=== PATIENT | male | born 1980 | race Asian ===

== ENCOUNTER → 2018-06-03 08:15 | Outpatient (CLI) | payer OTHER, MEDICAID, SELFPAY ==
--- NOTE | 2018-06-03 | DI.MRI.S_ITS ---
PROCEDURE: MR ANKLE RT WO CON INDICATIONS: CHRONIC RIGHT ANKLE PAIN TECHNIQUE: Noncontrast sagittal T1 spin echo and T2 fast spin echo with fat saturation, axial proton density fast spin echo and T2 fast spin echo with fat saturation, coronal T1 spin echo and T2 fast spin echo with fat saturation through the ankle/hindfoot. COMPARISON: [facility], CR, XR ANKLE RT MIN 3V, 02/23/2018, 10:33. FINDINGS: Image quality: Diagnostic. Bones and joints: There is no acute fracture, dislocation, or suspicious osseous lesion involving the osseous structures of the midfoot or hindfoot. There are mild degenerative changes of the talonavicular and medial tarsometatarsal joints. No significant joint effusions are identified. The ankle mortise is well-maintained. There are no osteochondral defects. Medial structures: The deltoid ligament is intact. The spring ligament is also intact. However, there is thickening and increased signal involving the superomedial band of the spring ligament. The plantar components of the spring ligament appear intact. The tibialis posterior tendon contains a small amount of fluid within its tendon sheath. Otherwise, this tendon is within normal limits. The flexor hallucis longus and flexor digitorum longus tendons are intact. The posterior tibial nerve appears to be within normal limits through the region of the tarsal tunnel. Lateral structures: There is irregularity and thickening involving the anterior and posterior distal tibiofibular ligaments, likely representing scarring from previous injury. There is diffusely increased signal and moderate thickening noted involving the anterior and posterior talofibular ligaments. The calcaneofibular ligament also demonstrates increased signal. No full-thickness tears are appreciated. The peroneus brevis and peroneus longus tendons are intact. There is slight increased signal identified involving the peroneus longus tendon along the lateral margin of the calcaneus just below the tip of the lateral malleolus without significant tearing evident. Medial subluxation of the peroneus brevis tendon at the tip of the lateral malleolus is noted. There is mild edema within this region. There is no significant edema within the sinus tarsi. Anterior structures: The tibialis anterior, extensor hallucis longus, and extensor digitorum longus tendons appear intact. The dorsal talonavicular ligament appears intact. Posterior and plantar structures: There is slight increased signal and thickening involving the distal aspect of the Achilles tendon without significant tearing. The plantar fascia appears to be intact and is otherwise unremarkable. IMPRESSION: 1. Extensive sprains of the lateral ankle ligaments without definite full-thickness tears. 2. Mild peroneus longus tendinopathy without significant tearing. Medial subluxation of the peroneus brevis tendon at the tip of the lateral malleolus. 3. Mild degenerative changes of the midfoot. 4. Moderate sprain of the spring ligament. No full-thickness tear. 5. Mild Achilles tendinopathy. Dictated by: Dario Deng M.D. on 06/03/2018 at 9:51 Approved by: Dario Deng M.D. on 06/03/2018 at 10:00
== END ==
PROVIDERS: PCP Family Medicine; Visit Provider Physician Assistant
DX: S93.491A Sprain of other ligament of right ankle, initial encounter (principal); M25.571 Pain in right ankle and joints of right foot; G89.29 Other chronic pain
CPT/HCPCS: 73721

== ENCOUNTER → 2019-05-09 15:42 | Outpatient (ROUT) | payer OTHER, MEDICAID, SELFPAY ==
[2019-05-09 16:12] LABS: Semen Sperm Prescence Post-Vas Absent (ABSENT)
== END ==
PROVIDERS: PCP Family Medicine; Visit Provider Family Medicine
DX: Z98.52 Vasectomy status (principal)
CPT/HCPCS: 89321

== ENCOUNTER → 2020-11-01 09:11 | Outpatient (CLI) | payer OTHER, MEDICAID, SELFPAY ==
[2020-11-01 11:01] LABS: Alanine Aminotransferase 21 IU/L (<50); Albumin 4.3 g/dL (3.5-5.0); Albumin Globulin Ratio 1.5 (1.0-2.8); Alkaline Phosphatase 44 U/L (38-126); Aspartate Aminotransferase 25 IU/L (17-59); BUN Creatinine Ratio 13.3 (6-22); Bilirubin Total 0.7 mg/dL (0.2-1.3); Blood Urea Nitrogen 13 mg/dL (9-20); Calcium 9.4 mg/dL (8.4-10.2); Carbon Dioxide 33 mmol/L (22-32); Chloride 102 mmol/L (98-107); Estimated Glomerular Filt Rate > 60.0 mL/min (>60); Globulin 2.9 g/dL (1.7-4.1); Glucose 105 mg/dL (70-100); HEMOLYSIS < 15 (0-50); Hemoglobin A1C% w Est Avg Glu 5.4 % (4.0-6.0); Potassium 4.1 mmol/L (3.4-5.1); Sodium 138 mmol/L (137-145); Total Protein 7.2 g/dL (6.3-8.2)
== END ==
PROVIDERS: PCP Family Medicine; Referring Provider Family Medicine; Visit Provider Family Medicine
DX: Z13.1 Encounter for screening for diabetes mellitus (principal)
CPT/HCPCS: 36415; 80053; 83036

== ENCOUNTER → 2020-11-26 18:15 | Outpatient (CLI) | payer OTHER, MEDICAID, SELFPAY ==
--- NOTE | 2020-11-26 18:18 | DI.RAD.S_ITS ---
PROCEDURE: XR HAND RT MIN 3V INDICATIONS: Right thumb swelling/tenderness. TECHNIQUE: 3 views of the hand(s) acquired. COMPARISON: None. FINDINGS: Bones: No fractures or dislocations. Carpal bones are normally aligned. No suspicious bony lesions. Soft tissues: No radiopaque foreign body or suspicious soft tissue calcifications. IMPRESSION: No acute finding. Dictated by: Bobby Tripathi M.D. on 11/26/2020 at 18:42 Approved by: Bobby Tripathi M.D. on 11/26/2020 at 18:42
== END ==
PROVIDERS: PCP Family Medicine; Referring Provider Physician Assistant; Visit Provider Physician Assistant
DX: S69.91XA Unspecified injury of right wrist, hand and finger(s), initial encounter (principal); X58.XXXA Exposure to other specified factors, initial encounter
CPT/HCPCS: 73130

== ENCOUNTER → 2020-12-28 08:45 | Outpatient (CLI) | payer OTHER, MEDICAID, SELFPAY ==
[2020-12-28] MEDS: COVID-19 VACC, Ad26(JANSSEN)/PF 0.5 ML IM (08:55)
== END ==
PROVIDERS: PCP Family Medicine; Visit Provider Internal Medicine
DX: Z23 Encounter for immunization (principal)
CPT/HCPCS: 0031A; 91303

== ENCOUNTER → 2022-11-27 09:24 | Outpatient (CLI) | payer OTHER, MEDICAID, SELFPAY | PROVIDERS: Family Provider Family Medicine; PCP Family Medicine; Referring Provider Family Medicine; Visit Provider Family Medicine | DX: G56.22 Lesion of ulnar nerve, left upper limb (principal) | CPT/HCPCS: 95886; 95909 ==

== ENCOUNTER → 2022-12-25 15:05 | Outpatient (CLI) | payer OTHER, MEDICAID, SELFPAY ==
--- NOTE | 2022-12-25 15:07 | DI.US.S_ITS ---
PROCEDURE: US SCROTUM INDICATIONS: Left testicular pain x3-4 yrs; getting worse TECHNIQUE: Real-time scanning was performed of the scrotum and testicles, with image documentation. Color and pulse Doppler interrogation was performed of both testicles. COMPARISON: None. FINDINGS: Right: Testicle is normal in size at 4.9 x 2.3 x 3.3 cm, and homogenous in echotexture. Epididymis is normal in overall size and morphology. No hydrocele or varicoceles. Overlying scrotal skin is normal in thickness. 2 mm echogenic foci within the testis. Left: Testicle is normal in size at 4.8 x 2.0 x 3.1 cm, and homogeneous in echotexture. 2 mm epididymal head cyst. Epididymis is otherwise normal in overall size and morphology. No hydrocele or varicoceles. Overlying scrotal skin is normal in thickness. Doppler: Color and pulse Doppler demonstrate normal and symmetric arterial flow in both testicles. IMPRESSION: 1. Left testicular microlithiasis. This may increased risk for neoplasm. No evidence of neoplasm. 2. Otherwise negative examination. Dictated by: Puma Murray M.D. on 12/25/2022 at 16:46 Approved by: Puma Murray M.D. on 12/25/2022 at 16:47
== END ==
PROVIDERS: Family Provider Family Medicine; PCP Family Medicine; Referring Provider Physician Assistant; Visit Provider Physician Assistant
DX: N50.812 Left testicular pain (principal)
CPT/HCPCS: 76870

== ENCOUNTER 2023-03-11 11:00 | Outpatient (RCR) | payer OTHER, MEDICAID, SELFPAY ==
--- NOTE | 2022-12-17 12:11 | PT.OIE ---
Current Diagnoses Pain in left knee (12/17/22) Past Medical History (Last Reviewed 10/16/22 @ 15:06 by Yuli Calvillo DO) Chicken pox Foot pain Impaired fasting glucose Injury of right thumb Pneumothorax Right clavicle fracture Shoulder pain (~2006) Past Surgical History (Last Reviewed 10/16/22 @ 15:06 by Yuli Calvillo DO) H/O chest tube placement (~1996) History of third molar tooth extraction Status post appendectomy Visit Care Team Role Provider Type Yuli Calvillo DO Attending Provider Physician Family Provider Primary Care Provider Referring Provider Specialty: Family Practice Address: [address] [place] [address] [place], [place], [facility] Email: 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 It was really swollen and stiff a month ago and couldnt squat until it shifted and clicked and then it could move. He feels like he can move his tibia more out on L side. It has always felt loose. 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 He typically works out but hasn't been able to run for the past year. He has history of L MCL tear in 2002 but they didn't do surgery. He feels like his lower leg would push up through his kneecap when doing squats. Pt reports he did go on Naked and afriad about 1.5 year ago and lost a lot of weight. It has always gotten swollen but the past few months it has been a lot worse. Going up and down the stairs he has to be really careful. NO specific recent injury. 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 He did injure his R ankle a few years ago too. He feels like his knee hyperextend and has pain for a few weeks after . He overdid it working out last week and he irritated his LB. REently he has been still doing workout and squats and deadlift etc but with low wt and knee swells up and he just works out through the pain. He would have to give it a week to let the swelling go down. He does have some catching and locking w/bending and straightening then gets a pop. Feels unstable when wlaking ou in the mud especially with feed bags for animals. Treatment Goals Patient/Caregiver Goals be able play soccer, [employer], go on hikes and backpacking trips like long. PT-OP-C Subjective Start: 12/16/22 16:58 Freq: Status: Active Protocol: Document 12/17/22 09:58 [facility] (Rec: 12/17/22 10:56 [facility] [id number]) Patient Questionnaires Lower Extremity Functional Scale LEFS Score 56/80 OP-PT Pain Assessment Location L knee Pain Location Details lat & med & ant Description Aching,Sharp Frequency Frequent Pain Aggravating Factors Exercise,Walking,Stair Climbing Other Pain Aggravating Factors squat, running, lifting Pain Alleviating Factors Elevation PT-OP-D Balance Start: 12/16/22 16:58 Freq: Status: Active Protocol: Document 12/17/22 09:58 [facility] (Rec: 12/17/22 10:56 [facility] [id number]) Balance Tests Single Limb Standing Single Limb- Right 30 sec EC Single Limb- Left 12 sec EC PT-OP-F Manual Assessment Start: 12/16/22 16:58 Freq: Status: Active Protocol: Document 12/17/22 09:58 [facility] (Rec: 12/17/22 10:56 [facility] [id number]) Manual Assessments Soft Tissue Assessment Soft Tissue Mobility Assessment pain along med jt line & MCL, tigthens off ITB and VL border Joint Mobility Assessment Joint Mobility Assessment ER of tibia & IR of femur that worsens w/knee bends L; B compensated supinated feet PT-OP-L Special Tests Start: 12/16/22 16:58 Freq: Status: Active Protocol: Document 12/17/22 09:58 [facility] (Rec: 12/17/22 10:56 [facility] [id number]) Special Tests Knee Special Tests Steve Test Test Results positive for discomfort Rut's Test Test Results neg Varus- 25 Degrees Test Results L slight laxity Valgus- 25 Degrees Test Results L sligth laxity Thessaly Test 5 Degrees Test Results positive Posterior Draw Test Results neg Heber's Test Results L slight laxity PT-OP-M Strength Start: 12/16/22 16:58 Freq: Status: Active Protocol: Document 12/17/22 09:58 [facility] (Rec: 12/17/22 10:56 [facility] [id number]) Hip Strength Hip Manual Muscle Testing Right Flexion (L2) 4 Good Extension (S1) 5 Normal Abduction 5 Normal Adduction 5 Normal External Rotation 5 Normal Internal Rotation 5 Normal Left Flexion (L2) 4- Good- Extension (S1) 4 Good Abduction 4 Good Adduction 4+ Good+ External Rotation 4 Good Internal Rotation 4 Good Comments dec core staiblity w/testing Knee Strength Knee Manual Muscle Testing Right Flexion (S2) 5 Normal Extension (L3) 5 Normal Left Flexion (S2) 5 Normal Extension (L3) 5 Normal Ankle/Foot Strength Ankle and Foot Manual Muscle Testing Right Dorsiflexion (L4) 5 Normal Plantarflexion (S1) 5 Normal Left Dorsiflexion (L4) 5 Normal Plantarflexion (S1) 5 Normal Comments 20 heel raises B PT-OP-Q Treatments Start: 12/16/22 16:58 Freq: Status: Active Protocol: Document 12/17/22 09:58 [facility] (Rec: 12/17/22 10:56 [facility] [id number]) Self-Care/Home Management Treatment Education Other Education 8 min-edu re: how the rotation of his knees could create meniscus injury. discussed anatomy of meniscus and knees and that PT has been proven to be very effective. discussed ligamentous laxity but no full give. Discussed dec core connection to LLE. PT-OP-T Assessment and Plan Start: 12/16/22 16:58 Freq: Status: Active Protocol: Document 12/17/22 09:58 [facility] (Rec: 12/17/22 10:56 [facility] [id number]) Physical Therapy Assessment Rehab Potential Rehabilitation Potential Good Evaluation Complexity Number of Personal Factors/Comorbidities 3 or More Number of Body Systems Impaired 4 or More Clinical Presentation at Evaluation Evolving Impairments Impairments Activity Tolerance,Balance, Edema,Functional Activities, Functional Mobility,Gait,Pain, Posture,ROM,Soft Tissue Mobility,Strength Goals activities Short Term Goal (STG) Pt will be able to go for walks on flat terrain w/o feeling need to be careful or feeling of instability. STG Duration 01/31/23 Fdc Goal (LTG) Pt will be able to return to running and cutting activities w/o feeling of instability. LTG Duration 03/10/23 balance Fdc Goal (LTG) Pt will be able to do SLS on LLE EC for 30 sec to show improved balancea nd stability . 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 STG Duration 01/31/23 Fdc Goal (LTG) Pt will improve score to LEFS to at least 76/80 to show improved functional ability. LTG Duration 03/11/23 Assessment Summary Assessment Pt presents w/L knee pain that has limited him for the past year, but has gotten much worse that past few months. He has significant ER of tibia, pronation of foot and IR of femur likely causing rotatary forces at knee that are increasing pain. He typically is very active and is unable to play with his kids as he typically would like, unable to lift and workout w/o signfiicantly increasing his pain and even walking on even terrain is difficult for him and he feels like he has to focus on his mechanics constantly to avoid hurting his knee. He has had instabiltiy since MCL tear 20 years ago which had no surgical care. He would benefit from skilled PT to improve movement patterns of LLE, balance, gait, strength and ROM of L knee withou inc pain during typical activities . Physical Therapy Plan Frequency and Duration Frequency of Treatment 1-2x/wk Duration of treatment (weeks) 12 Plan of Care Start Date 12/17/22 Plan of Care End Date 03/11/23 Therapeutic Interventions Therapeutic Interventions Aquatic Therapy,Balance Training,Coordination Training ,Gait Training,Home Exercise Program,Joint Mobilizations, Soft Tissue Mobilization, Taping,Therapeutic Activities, Therapeutic Exercises Modalities Cold Pack/Ice Massage,Electric Stimulation,Hot Packs, Infrared Therapy,Iontophoresis ,Ultrasound Other Therapeutic Interventions ionto dexomethasone Next Visit Focus/Plan Next Note Type Treatment Note Next Visit Plan review DL iso press; look at squat form and lunge form, check demetrius and SLR, manual to VL/ITB, hip mobs & ankle mobs along w/tib fem mobs
--- NOTE | 2022-12-17 12:11 | PT.OPPOC ---
Physical, Occupational & Speech Therapy At [facility] Current Diagnoses Pain in left knee (12/17/22) Visit Care Team Role Provider Type Yuli Calvillo DO Attending Provider Physician Family Provider Primary Care Provider Referring Provider Specialty: Family Practice Address: [address] [place] [address], [id number] Email: [email or web address] Plan Of Care PT-OP-T Assessment and Plan Start: 12/16/22 16:58 Freq: Status: Active Protocol: Document 12/17/22 09:58 [facility] (Rec: 12/17/22 10:56 [facility] [id number]) Physical Therapy Assessment Rehab Potential Rehabilitation Potential Good Evaluation Complexity Number of Personal Factors/Comorbidities 3 or More Number of Body Systems Impaired 4 or More Clinical Presentation at Evaluation Evolving Impairments Impairments Activity Tolerance,Balance, Edema,Functional Activities, Functional Mobility,Gait,Pain, Posture,ROM,Soft Tissue Mobility,Strength Goals activities Short Term Goal (STG) Pt will be able to go for walks on flat terrain w/o feeling need to be careful or feeling of instability. STG Duration 01/31/23 Alf Goal (LTG) Pt will be able to return to running and cutting activities w/o feeling of instability. LTG Duration 03/10/23 balance [employer] Reader Goal (LTG) Pt will be able to do SLS on LLE EC for 30 sec to show improved balancea nd stability . LTG Duration 03/10/23 strength Short Term Goal (STG) Pt will be indep w/HEP STG Duration 01/31/23 [employer] Reader Goal (LTG) Pt will score at 5/5 on all MMT w/appropriate core response in testing and at least 4/5 on LPM to show improved stability in order to improve pt ability to do typical active lifestyle activities(sports, hikes, play w/kids) LTG Duration 03/10/23 LEFS Impairment 56/80 Short Term Goal (STG) Pt will improve score to LEFS to at least 64/80 to show improved functional ability. STG Duration 01/31/23 [employer] Reader Goal (LTG) Pt will improve score to LEFS to at least 76/80 to show improved functional ability. LTG Duration 03/11/23 Assessment Summary Assessment Pt presents w/L knee pain that has limited him for the past year, but has gotten much worse that past few months. He has significant ER of tibia, pronation of foot and IR of femur likely causing rotatary forces at knee that are increasing pain. He typically is very active and is unable to play with his kids as he typically would like, unable to lift and workout w/o signfiicantly increasing his pain and even walking on even terrain is difficult for him and he feels like he has to focus on his mechanics constantly to avoid hurting his knee. He has had instabiltiy since MCL tear 20 years ago which had no surgical care. He would benefit from skilled PT to improve movement patterns of LLE, balance, gait, strength and ROM of L knee withou inc pain during typical activities . Physical Therapy Plan Frequency and Duration Frequency of Treatment 1-2x/wk Duration of treatment (weeks) 12 Plan of Care Start Date 12/17/22 Plan of Care End Date 03/11/23 Therapeutic Interventions Therapeutic Interventions Aquatic Therapy,Balance Training,Coordination Training ,Gait Training,Home Exercise Program,Joint Mobilizations, Soft Tissue Mobilization, Taping,Therapeutic Activities, Therapeutic Exercises Modalities Cold Pack/Ice Massage,Electric Stimulation,Hot Packs, Infrared Therapy,Iontophoresis ,Ultrasound Other Therapeutic Interventions ionto dexomethasone Next Visit Focus/Plan Next Note Type Treatment Note Next Visit Plan review DL iso press; look at squat form and lunge form, check demetrius and SLR, manual to VL/ITB, hip mobs & ankle mobs along w/tib fem mobs Plan of Care Dates Plan of Care Start Date 12/17/22 Plan of Care End Date 03/11/23 Electronically Signed by: Trisha Luther, PT 12/17/22 121 If you are in agreement with this Plan of Care, please return a signed and dated copy. I have reviewed this Plan of Care and certify that the skilled therapy services above are required to meet the patient?s needs. Physician Signature Date Printed Name and Credentials Clinical Instructor Signature Printed Name and Credentials
--- NOTE | 2022-12-24 10:51 | PT.OTN ---
Current Diagnoses Pain in left knee (12/24/22) Physical Therapy Treatment Note PT-OP-A Visit Information Start: 12/16/22 16:58 Freq: Status: Active Protocol: Document 12/24/22 09:27 [facility] (Rec: 12/24/22 10:51 [facility] [id number]) Out-Patient Physical Therapy Visit Information Visit Information Visit Type Treatment Note Visit Start Time 09:47 Visit Stop Time 10:30 Total Visit Minutes 43 Visit Number 2/12 Number of MUNITIONS FACTORY WORKER Visits 0 PT-OP-B Current Condition Start: 12/16/22 16:58 Freq: Status: Active Protocol: Document 12/17/22 09:58 [facility] (Rec: 12/17/22 10:56 [facility] [id number]) Current Condition History of Current Condition Onset Date about 1 year and worse past few months Current Complaints L knee pain History of Current Condition Pt reports his L knee never felt stable. It was really swollen and stiff a month ago and couldnt squat until it shifted and clicked and then it could move. He feels like he can move his tibia more out on L side. It has always felt loose. 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 He typically works out but hasn't been able to run for the past year. He has history of L MCL tear in 2002 but they didn't do surgery. He feels like his lower leg would push up through his kneecap when doing squats. Pt reports he did go on Naked and afriad about 1.5 year ago and lost a lot of weight. It has always gotten swollen but the past few months it has been a lot worse. Going up and down the stairs he has to be really careful. NO specific recent injury. 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 He did injure his R ankle a few years ago too. He feels like his knee hyperextend and has pain for a few weeks after . He overdid it working out last week and he irritated his LB. REently he has been still doing workout and squats and deadlift etc but with low wt and knee swells up and he just works out through the pain. He would have to give it a week to let the swelling go down. He does have some catching and locking w/bending and straightening then gets a pop. Feels unstable when wlaking ou in the mud especially with feed bags for animals. Treatment Goals Patient/Caregiver Goals be able play soccer, ultimate frisbee, go on hikes and backpacking trips like long. PT-OP-C Subjective Start: 12/16/22 16:58 Freq: Status: Active Protocol: Document 12/24/22 09:27 [facility] (Rec: 12/24/22 10:51 [facility] [id number]) OP-PT Subjective Patient Comments Patient Comments Pt reprots knee feels okay but was gone at a wedding but did some air squats . notes he feels like his core is uneven and has noticed this more sicne eval. Notes his R ankle restricts his squat ability but it was never treated PT-OP-D Balance Start: 12/16/22 16:58 Freq: Status: Active Protocol: Document 12/17/22 09:58 [facility] (Rec: 12/17/22 10:56 [facility] [id number]) Balance Tests Single Limb Standing Single Limb- Right 30 sec EC Single Limb- Left 12 sec EC PT-OP-F Manual Assessment Start: 12/16/22 16:58 Freq: Status: Active Protocol: Document 12/17/22 09:58 [facility] (Rec: 12/17/22 10:56 [facility] [id number]) Manual Assessments Soft Tissue Assessment Soft Tissue Mobility Assessment pain along med jt line & MCL, tigthens off ITB and VL border Joint Mobility Assessment Joint Mobility Assessment ER of tibia & IR of femur that worsens w/knee bends L; B compensated supinated feet PT-OP-L Special Tests Start: 12/16/22 16:58 Freq: Status: Active Protocol: Document 12/17/22 09:58 [facility] (Rec: 12/17/22 10:56 [facility] [id number]) Special Tests Knee Special Tests Steve Test Test Results positive for discomfort Rut's Test Test Results neg Varus- 25 Degrees Test Results L slight laxity Valgus- 25 Degrees Test Results L sligth laxity Thessaly Test 5 Degrees Test Results positive Posterior Draw Test Results neg Heber's Test Results L slight laxity PT-OP-M Strength Start: 12/16/22 16:58 Freq: Status: Active Protocol: Document 12/17/22 09:58 [facility] (Rec: 12/17/22 10:56 [facility] [id number]) Hip Strength Hip Manual Muscle Testing Right Flexion (L2) 4 Good Extension (S1) 5 Normal Abduction 5 Normal Adduction 5 Normal External Rotation 5 Normal Internal Rotation 5 Normal Left Flexion (L2) 4- Good- Extension (S1) 4 Good Abduction 4 Good Adduction 4+ Good+ External Rotation 4 Good Internal Rotation 4 Good Comments dec core staiblity w/testing Knee Strength Knee Manual Muscle Testing Right Flexion (S2) 5 Normal Extension (L3) 5 Normal Left Flexion (S2) 5 Normal Extension (L3) 5 Normal Ankle/Foot Strength Ankle and Foot Manual Muscle Testing Right Dorsiflexion (L4) 5 Normal Plantarflexion (S1) 5 Normal Left Dorsiflexion (L4) 5 Normal Plantarflexion (S1) 5 Normal Comments 20 heel raises B PT-OP-Q Treatments Start: 12/16/22 16:58 Freq: Status: Active Protocol: Document 12/24/22 09:27 [facility] (Rec: 12/24/22 10:51 [facility] [id number]) Therapeutic Exercises Prone Exercises hip rotation Prone Exercise Name IR and ER Side left Reps/Minutes 6 Comments cues to keep pelvis even Standing Exercises ankle mob Standing Exercise Name on step Side bilateral Equipment Used L4 band Reps/Minutes 3 lunge Standing Exercise Name split squat Side bilateral Reps/Minutes 10 Comments cues for glute med engagment squat Side bilateral Reps/Minutes 8 Comments cues comfortable range Manual Therapy Treatment Joint Mobilizations hip Direction B on axis IR FM; L on axis ER Fm Comments manual faciliation at end ranges innominate Joint caudal R, IR B, ER L FM sacrum Joint caudal R, AP L FM PT-OP-T Assessment and Plan Start: 12/16/22 16:58 Freq: Status: Active Protocol: Document 12/24/22 09:27 [facility] (Rec: 12/24/22 10:51 [facility] [id number]) Physical Therapy Assessment Goals activities Short Term Goal (STG) Pt will be able to go for walks on flat terrain w/o feeling need to be careful or feeling of instability. STG Duration 01/31/23 Fiber Optic Technician Goal (LTG) Pt will be able to return to running and cutting activities w/o feeling of instability. LTG Duration 03/10/23 balance Fci Goal (LTG) Pt will be able to do SLS on LLE EC for 30 sec to show improved balancea nd stability . LTG Duration 03/10/23 strength Short Term Goal (STG) Pt will be indep w/HEP STG Duration 01/31/23 Fiber Optic Technician Goal (LTG) Pt will score at 5/5 on all MMT w/appropriate core response in testing and at least 4/5 on LPM to show improved stability in order to improve pt ability to do typical active lifestyle activities(sports, hikes, play w/kids) LTG Duration 03/10/23 LEFS Impairment 56/80 Short Term Goal (STG) Pt will improve score to LEFS to at least 64/80 to show improved functional ability. STG Duration 01/31/23 [facility]ci Goal (LTG) Pt will improve score to LEFS to at least 76/80 to show improved functional ability. LTG Duration 03/11/23 Assessment Summary Assessment Pt has significant restrictions and hp and ankle B which create inappropriate femoral and tibial rotaitons during standing exericses. He did well with squats but encouraged to stay in comfortable range, and w/split squat encouraged to keep hip under him and get hip abd. Physical Therapy Plan Frequency and Duration Frequency of Treatment 1-2x/wk Duration of treatment (weeks) 12 Plan of Care Start Date 12/17/22 Plan of Care End Date 03/11/23 Next Visit Focus/Plan Next Note Type Treatment Note Next Visit Plan check demetrius and ORTIZ, manual to VL/ITB, hip mobs & ankle mobs along w/tib fem mobs; work innominate/hip flex, abd, add and ext
--- NOTE | 2023-01-02 10:30 | PT.OTN ---
Current Diagnoses Pain in left knee (01/02/23) Physical Therapy Treatment Note PT-OP-A Visit Information Start: 12/16/22 16:58 Freq: Status: Active Protocol: Document 01/02/23 09:47 [facility] (Rec: 01/02/23 10:33 [facility] [id number]) Out-Patient Physical Therapy Visit Information Visit Information Visit Type Treatment Note Visit Start Time 09:47 Visit Stop Time 10:30 Total Visit Minutes 42 Visit Number 3/ Number of METAL SASH SETTER Visits 1 PT-OP-B Current Condition Start: 12/16/22 16:58 Freq: Status: Active Protocol: Document 12/17/22 09:58 [facility] (Rec: 12/17/22 10:56 [facility] [id number]) Current Condition History of Current Condition Onset Date about 1 year and worse past few months Current Complaints L knee pain History of Current Condition Pt reports his L knee never felt stable. It was really swollen and stiff a month ago and couldnt squat until it shifted and clicked and then it could move. He feels like he can move his tibia more out on L side. It has always felt loose. 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 He typically works out but hasn't been able to run for the past year. He has history of L MCL tear in 2002 but they didn't do surgery. He feels like his lower leg would push up through his kneecap when doing squats. Pt reports he did go on Naked and afriad about 1.5 year ago and lost a lot of weight. It has always gotten swollen but the past few months it has been a lot worse. Going up and down the stairs he has to be really careful. NO specific recent injury. 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 He did injure his R ankle a few years ago too. He feels like his knee hyperextend and has pain for a few weeks after . He overdid it working out last week and he irritated his LB. REently he has been still doing workout and squats and deadlift etc but with low wt and knee swells up and he just works out through the pain. He would have to give it a week to let the swelling go down. He does have some catching and locking w/bending and straightening then gets a pop. Feels unstable when wlaking ou in the mud especially with feed bags for animals. Treatment Goals Patient/Caregiver Goals be able play soccer, ultimate frisbee, go on hikes and backpacking trips like long. PT-OP-C Subjective Start: 12/16/22 16:58 Freq: Status: Active Protocol: Document 01/02/23 09:47 [facility] (Rec: 01/02/23 10:33 [facility] [id number]) OP-PT Subjective Patient Comments Patient Comments Pt reports good stretching and exercises given last tx and compliant at home. PT-OP-D Balance Start: 12/16/22 16:58 Freq: Status: Active Protocol: Document 12/17/22 09:58 [facility] (Rec: 12/17/22 10:56 [facility] [id number]) Balance Tests Single Limb Standing Single Limb- Right 30 sec EC Single Limb- Left 12 sec EC PT-OP-F Manual Assessment Start: 12/16/22 16:58 Freq: Status: Active Protocol: Document 12/17/22 09:58 [facility] (Rec: 12/17/22 10:56 [facility] [id number]) Manual Assessments Soft Tissue Assessment Soft Tissue Mobility Assessment pain along med jt line & MCL, tigthens off ITB and VL border Joint Mobility Assessment Joint Mobility Assessment ER of tibia & IR of femur that worsens w/knee bends L; B compensated supinated feet PT-OP-L Special Tests Start: 12/16/22 16:58 Freq: Status: Active Protocol: Document 12/17/22 09:58 [facility] (Rec: 12/17/22 10:56 [facility] [id number]) Special Tests Knee Special Tests Steve Test Test Results positive for discomfort Rut's Test Test Results neg Varus- 25 Degrees Test Results L slight laxity Valgus- 25 Degrees Test Results L sligth laxity Thessaly Test 5 Degrees Test Results positive Posterior Draw Test Results neg Heber's Test Results L slight laxity PT-OP-M Strength Start: 12/16/22 16:58 Freq: Status: Active Protocol: Document 12/17/22 09:58 [facility] (Rec: 12/17/22 10:56 [facility] [id number]) Hip Strength Hip Manual Muscle Testing Right Flexion (L2) 4 Good Extension (S1) 5 Normal Abduction 5 Normal Adduction 5 Normal External Rotation 5 Normal Internal Rotation 5 Normal Left Flexion (L2) 4- Good- Extension (S1) 4 Good Abduction 4 Good Adduction 4+ Good+ External Rotation 4 Good Internal Rotation 4 Good Comments dec core staiblity w/testing Knee Strength Knee Manual Muscle Testing Right Flexion (S2) 5 Normal Extension (L3) 5 Normal Left Flexion (S2) 5 Normal Extension (L3) 5 Normal Ankle/Foot Strength Ankle and Foot Manual Muscle Testing Right Dorsiflexion (L4) 5 Normal Plantarflexion (S1) 5 Normal Left Dorsiflexion (L4) 5 Normal Plantarflexion (S1) 5 Normal Comments 20 heel raises B PT-OP-Q Treatments Start: 12/16/22 16:58 Freq: Status: Active Protocol: Document 01/02/23 09:47 [facility] (Rec: 01/02/23 10:33 [facility] [id number]) Therapeutic Exercises Supine Exercises demetrius stretch Supine Exercise Name added to HEP Side bilateral Resistance R tighter than L (feel tension L during R, ok if PPT) Equipment Used w/ strap Reps/Minutes 60 Comments cued PPT/neutral spineTA no LB arch Prone Exercises hip rotation Prone Exercise Name IR and ER Side left Reps/Minutes 6 Comments cues to keep pelvis even, limited IR Standing Exercises runner stretch Standing Exercise Name reviewed self- discussed pigeon up/down trial next tx Side left Reps/Minutes 30 Comments reviewed self runners stretch LE up on table, SLS on opp LE Other Exercises 1/2 kneel stretch Other Exercise Name added to HEP and w/ foot elevated Side bilateral Equipment Used pillow under kne Reps/Minutes 60 Comments cued Manual Therapy Treatment Soft Tissue Mobilization Leg Body Location B VL, ITB Mobilization Type Cross-Friction,Strumming Intensity/Depth Moderate Body Position Hooklying Comments manual w/breath abdominal Body Location B Mobilization Type Sustained Pressure,Other Intensity/Depth Moderate Body Position Hooklying Comments manual w/breath psoas, iliacus Body Location B Mobilization Type Sustained Pressure,Other Intensity/Depth Moderate Body Position Hooklying Comments manual w/breath PT-OP-T Assessment and Plan Start: 12/16/22 16:58 Freq: Status: Active Protocol: Document 01/02/23 09:47 [facility] (Rec: 01/02/23 10:33 [facility] [id number]) Physical Therapy Assessment Goals activities Short Term Goal (STG) Pt will be able to go for walks on flat terrain w/o feeling need to be careful or feeling of instability. STG Duration 01/31/23 Pharmacy Technician Trainee Goal (LTG) Pt will be able to return to running and cutting activities w/o feeling of instability. LTG Duration 03/10/23 balance Pharmacy Technician Trainee Goal (LTG) Pt will be able to do SLS on LLE EC for 30 sec to show improved balancea nd stability . LTG Duration 03/10/23 strength Short Term Goal (STG) Pt will be indep w/HEP STG Duration 01/31/23 Pharmacy Technician Trainee Goal (LTG) Pt will score at 5/5 on all MMT w/appropriate core response in testing and at least 4/5 on LPM to show improved stability in order to improve pt ability to do typical active lifestyle activities(sports, hikes, play w/kids) LTG Duration 03/10/23 LEFS Impairment 56/80 Short Term Goal (STG) Pt will improve score to LEFS to at least 64/80 to show improved functional ability. STG Duration 01/31/23 Jail Goal (LTG) Pt will improve score to LEFS to at least 76/80 to show improved functional ability. LTG Duration 03/11/23 Assessment Summary Assessment Pt good feedback response to manual and added hip flexor stretching, stated able to get more hip extension, IR post session. Physical Therapy Plan Frequency and Duration Frequency of Treatment 1-2x/wk Duration of treatment (weeks) 12 Plan of Care Start Date 12/17/22 Plan of Care End Date 03/11/23 Therapeutic Interventions Therapeutic Interventions Aquatic Therapy,Balance Training,Coordination Training ,Gait Training,Home Exercise Program,Joint Mobilizations, Soft Tissue Mobilization, Taping,Therapeutic Activities, Therapeutic Exercises Modalities Cold Pack/Ice Massage,Electric Stimulation,Hot Packs, Infrared Therapy,Iontophoresis ,Ultrasound Other Therapeutic Interventions ionto dexomethasone Next Visit Focus/Plan Next Note Type Treatment Note Next Visit Plan REcheck demetrius and ORTIZ POC: manual to VL/ITB, hip mobs & ankle mobs along w/tib fem mobs; work innominate/hip flex, abd, add and ext
--- NOTE | 2023-01-07 17:45 | PT.OTN ---
Current Diagnoses Pain in left knee (01/07/23) Physical Therapy Treatment Note PT-OP-A Visit Information Start: 12/16/22 16:58 Freq: Status: Active Protocol: Document 01/07/23 09:53 [facility] (Rec: 01/07/23 17:45 [facility] [id number]) Out-Patient Physical Therapy Visit Information Visit Information Visit Type Treatment Note Visit Start Time 09:51 Visit Stop Time 10:32 Total Visit Minutes 41 Visit Number 4/12 Number of CLOSING SPECIALIST Visits 0 PT-OP-B Current Condition Start: 12/16/22 16:58 Freq: Status: Active Protocol: Document 12/17/22 09:58 [facility] (Rec: 12/17/22 10:56 [facility] [id number]) Current Condition History of Current Condition Onset Date about 1 year and worse past few months Current Complaints L knee pain History of Current Condition Pt reports his L knee never felt stable. It was really swollen and stiff a month ago and couldnt squat until it shifted and clicked and then it could move. He feels like he can move his tibia more out on L side. It has always felt loose. 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 He typically works out but hasn't been able to run for the past year. He has history of L MCL tear in 2002 but they didn't do surgery. He feels like his lower leg would push up through his kneecap when doing squats. Pt reports he did go on Naked and afriad about 1.5 year ago and lost a lot of weight. It has always gotten swollen but the past few months it has been a lot worse. Going up and down the stairs he has to be really careful. NO specific recent injury. 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 He did injure his R ankle a few years ago too. He feels like his knee hyperextend and has pain for a few weeks after . He overdid it working out last week and he irritated his LB. REently he has been still doing workout and squats and deadlift etc but with low wt and knee swells up and he just works out through the pain. He would have to give it a week to let the swelling go down. He does have some catching and locking w/bending and straightening then gets a pop. Feels unstable when wlaking ou in the mud especially with feed bags for animals. Treatment Goals Patient/Caregiver Goals be able play soccer, ultimate frisbee, go on hikes and backpacking trips like long. PT-OP-C Subjective Start: 12/16/22 16:58 Freq: Status: Active Protocol: Document 01/07/23 09:53 [facility] (Rec: 01/07/23 17:45 [facility] [id number]) OP-PT Subjective Patient Comments Patient Comments Pt reprots knee is sore from working out PT-OP-D Balance Start: 12/16/22 16:58 Freq: Status: Active Protocol: Document 12/17/22 09:58 [facility] (Rec: 12/17/22 10:56 [id number] Balance Tests Single Limb Standing Single Limb- Right 30 sec EC Single Limb- Left 12 sec EC PT-OP-F Manual Assessment Start: 12/16/22 16:58 Freq: Status: Active Protocol: Document 12/17/22 09:58 [facility] (Rec: 12/17/22 10:56 [facility] [id number]) Manual Assessments Soft Tissue Assessment Soft Tissue Mobility Assessment pain along med jt line & MCL, tigthens off ITB and VL border Joint Mobility Assessment Joint Mobility Assessment ER of tibia & IR of femur that worsens w/knee bends L; B compensated supinated feet PT-OP-L Special Tests Start: 12/16/22 16:58 Freq: Status: Active Protocol: Document 12/17/22 09:58 [facility] (Rec: 12/17/22 10:56 [facility] [id number]) Special Tests Knee Special Tests Steve Test Test Results positive for discomfort Rut's Test Test Results neg Varus- 25 Degrees Test Results L slight laxity Valgus- 25 Degrees Test Results L sligth laxity Thessaly Test 5 Degrees Test Results positive Posterior Draw Test Results neg Heber's Test Results L slight laxity PT-OP-M Strength Start: 12/16/22 16:58 Freq: Status: Active Protocol: Document 12/17/22 09:58 [facility] (Rec: 12/17/22 10:56 [facility] [id number]) Hip Strength Hip Manual Muscle Testing Right Flexion (L2) 4 Good Extension (S1) 5 Normal Abduction 5 Normal Adduction 5 Normal External Rotation 5 Normal Internal Rotation 5 Normal Left Flexion (L2) 4- Good- Extension (S1) 4 Good Abduction 4 Good Adduction 4+ Good+ External Rotation 4 Good Internal Rotation 4 Good Comments dec core staiblity w/testing Knee Strength Knee Manual Muscle Testing Right Flexion (S2) 5 Normal Extension (L3) 5 Normal Left Flexion (S2) 5 Normal Extension (L3) 5 Normal Ankle/Foot Strength Ankle and Foot Manual Muscle Testing Right Dorsiflexion (L4) 5 Normal Plantarflexion (S1) 5 Normal Left Dorsiflexion (L4) 5 Normal Plantarflexion (S1) 5 Normal Comments 20 heel raises B PT-OP-Q Treatments Start: 12/16/22 16:58 Freq: Status: Active Protocol: Document 01/07/23 09:53 [facility] (Rec: 01/07/23 17:45 [facility] [id number]) Manual Therapy Treatment Soft Tissue Mobilization quad Body Location RF w/demetrius test position active knee flex/ext Mobilization Type Sustained Pressure Intensity/Depth Moderate Leg Body Location L VL, ITB & HS circumfrential Mobilization Type Cross-Friction,Strumming Intensity/Depth Moderate Body Position Hooklying Comments w/active HS stretch psoas, iliacus Body Location L working on movement into inguinal ligament Mobilization Type Sustained Pressure,Other Intensity/Depth Moderate Body Position Hooklying Comments w/heel slides Joint Mobilizations tibfib Comments 1.L distraction & AP FM fib proximal 2. distal tib PA FM tibfem Comments AP tibia and AP femur FM L PT-OP-T Assessment and Plan Start: 12/16/22 16:58 Freq: Status: Active Protocol: Document 01/07/23 09:53 [facility] (Rec: 01/07/23 17:45 [facility] [id number]) Physical Therapy Assessment Goals activities Short Term Goal (STG) Pt will be able to go for walks on flat terrain w/o feeling need to be careful or feeling of instability. STG Duration 01/31/23 Tax Services Professional Goal (LTG) Pt will be able to return to running and cutting activities w/o feeling of instability. LTG Duration 03/10/23 balance Usp Goal (LTG) Pt will be able to do SLS on LLE EC for 30 sec to show improved balancea nd stability . LTG Duration 03/10/23 strength Short Term Goal (STG) Pt will be indep w/HEP STG Duration 01/31/23 Usp Goal (LTG) Pt will score at 5/5 on all MMT w/appropriate core response in testing and at least 4/5 on LPM to show improved stability in order to improve pt ability to do typical active lifestyle activities(sports, hikes, play w/kids) LTG Duration 03/10/23 LEFS Impairment 56/80 Short Term Goal (STG) Pt will improve score to LEFS to at least 64/80 to show improved functional ability. STG Duration 01/31/23 Tax Services Professional Goal (LTG) Pt will improve score to LEFS to at least 76/80 to show improved functional ability. LTG Duration 03/11/23 Assessment Summary Assessment Pt had improved knee tracking after manual treatment.He does still have ER of tibia in standing along w/ER of foot which likely contributes to knee positioning being turned out. Physical Therapy Plan Frequency and Duration Frequency of Treatment 1-2x/wk Duration of treatment (weeks) 12 Plan of Care Start Date 12/17/22 Plan of Care End Date 03/11/23 Next Visit Focus/Plan Next Note Type Treatment Note Next Visit Plan work on ankle mobs, and circumfential mobility, med/ lat tibfem glides;sidesteps, do lat and fwd lunge (make sure no knee pain)
--- NOTE | 2023-01-14 12:24 | PT.OTN ---
Current Diagnoses Pain in left knee (01/14/23) Physical Therapy Treatment Note PT-OP-A Visit Information Start: 12/16/22 16:58 Freq: Status: Active Protocol: Document 01/14/23 12:15 [facility] (Rec: 01/14/23 12:23 [facility] [id number]) Out-Patient Physical Therapy Visit Information Visit Information Visit Start Time 09:52 Visit Stop Time 10:31 Total Visit Minutes 39 Visit Number 5/12 Number of STEAM ROOM ATTENDANT Visits 0 PT-OP-B Current Condition Start: 12/16/22 16:58 Freq: Status: Active Protocol: Document 12/17/22 09:58 [facility] (Rec: 12/17/22 10:56 [facility] [id number]) Current Condition History of Current Condition Onset Date about 1 year and worse past few months Current Complaints L knee pain History of Current Condition Pt reports his L knee never felt stable. It was really swollen and stiff a month ago and couldnt squat until it shifted and clicked and then it could move. He feels like he can move his tibia more out on L side. It has always felt loose. 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 He typically works out but hasn't been able to run for the past year. He has history of L MCL tear in 2002 but they didn't do surgery. He feels like his lower leg would push up through his kneecap when doing squats. Pt reports he did go on Naked and afriad about 1.5 year ago and lost a lot of weight. It has always gotten swollen but the past few months it has been a lot worse. Going up and down the stairs he has to be really careful. NO specific recent injury. 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 He did injure his R ankle a few years ago too. He feels like his knee hyperextend and has pain for a few weeks after . He overdid it working out last week and he irritated his LB. REently he has been still doing workout and squats and deadlift etc but with low wt and knee swells up and he just works out through the pain. He would have to give it a week to let the swelling go down. He does have some catching and locking w/bending and straightening then gets a pop. Feels unstable when wlaking ou in the mud especially with feed bags for animals. Treatment Goals Patient/Caregiver Goals be able play soccer, ultimate frisbee, go on hikes and backpacking trips like long. PT-OP-C Subjective Start: 12/16/22 16:58 Freq: Status: Active Protocol: Document 01/14/23 12:15 [facility] (Rec: 01/14/23 12:23 [facility] [id number]) OP-PT Subjective Patient Comments Patient Comments pt reports knee has been popping but not painfully since last session. Notes knee has been more sore w/working out since PT PT-OP-D Balance Start: 12/16/22 16:58 Freq: Status: Active Protocol: Document 12/17/22 09:58 [facility] (Rec: 12/17/22 10:56 [id number] Balance Tests Single Limb Standing Single Limb- Right 30 sec EC Single Limb- Left 12 sec EC PT-OP-F Manual Assessment Start: 12/16/22 16:58 Freq: Status: Active Protocol: Document 12/17/22 09:58 [facility] (Rec: 12/17/22 10:56 [facility] [id number]) Manual Assessments Soft Tissue Assessment Soft Tissue Mobility Assessment pain along med jt line & MCL, tigthens off ITB and VL border Joint Mobility Assessment Joint Mobility Assessment ER of tibia & IR of femur that worsens w/knee bends L; B compensated supinated feet PT-OP-L Special Tests Start: 12/16/22 16:58 Freq: Status: Active Protocol: Document 12/17/22 09:58 [facility] (Rec: 12/17/22 10:56 [facility] [id number]) Special Tests Knee Special Tests Steve Test Test Results positive for discomfort Rut's Test Test Results neg Varus- 25 Degrees Test Results L slight laxity Valgus- 25 Degrees Test Results L sligth laxity Thessaly Test 5 Degrees Test Results positive Posterior Draw Test Results neg Heber's Test Results L slight laxity PT-OP-M Strength Start: 12/16/22 16:58 Freq: Status: Active Protocol: Document 12/17/22 09:58 [facility] (Rec: 12/17/22 10:56 [facility] [id number]) Hip Strength Hip Manual Muscle Testing Right Flexion (L2) 4 Good Extension (S1) 5 Normal Abduction 5 Normal Adduction 5 Normal External Rotation 5 Normal Internal Rotation 5 Normal Left Flexion (L2) 4- Good- Extension (S1) 4 Good Abduction 4 Good Adduction 4+ Good+ External Rotation 4 Good Internal Rotation 4 Good Comments dec core staiblity w/testing Knee Strength Knee Manual Muscle Testing Right Flexion (S2) 5 Normal Extension (L3) 5 Normal Left Flexion (S2) 5 Normal Extension (L3) 5 Normal Ankle/Foot Strength Ankle and Foot Manual Muscle Testing Right Dorsiflexion (L4) 5 Normal Plantarflexion (S1) 5 Normal Left Dorsiflexion (L4) 5 Normal Plantarflexion (S1) 5 Normal Comments 20 heel raises B PT-OP-Q Treatments Start: 12/16/22 16:58 Freq: Status: Active Protocol: Document 01/14/23 12:15 [facility] (Rec: 01/14/23 12:23 [facility] [id number]) Therapeutic Exercises Standing Exercises toe exercises Standing Exercise Name attempts to lift big toe/ little toe lift Side left SLS Standing Exercise Name focus on arch lift, hips level Side left Reps/Minutes 3 trials hip hike Standing Exercise Name standing in mirror w/focus on avoiding R rot Side left Reps/Minutes 10 lunge Standing Exercise Name in mirror monitoring hip position Side left Reps/Minutes 10 squat Side bilateral Equipment Used [place] band latex at knees Reps/Minutes 12 Comments able to go further w/o pain Manual Therapy Treatment Soft Tissue Mobilization quad Body Location L patellar tendon and lat patella Mobilization Type Sustained Pressure Intensity/Depth Moderate Joint Mobilizations ankle Comments L AP talus FM L cuneiform gapping FM tibfib Comments AP fib proximal FM distal tib PA FM tibfem Comments AP femur FM; med glide femur & lat tib FM PT-OP-T Assessment and Plan Start: 12/16/22 16:58 Freq: Status: Active Protocol: Document 01/14/23 12:15 [facility] (Rec: 01/14/23 12:23 [facility] [id number]) Physical Therapy Assessment Goals activities Short Term Goal (STG) Pt will be able to go for walks on flat terrain w/o feeling need to be careful or feeling of instability. STG Duration 01/31/23 Rn Family Practice Goal (LTG) Pt will be able to return to running and cutting activities w/o feeling of instability. LTG Duration 03/10/23 balance Halfway Goal (LTG) Pt will be able to do SLS on LLE EC for 30 sec to show improved balancea nd stability . LTG Duration 03/10/23 strength Short Term Goal (STG) Pt will be indep w/HEP STG Duration 01/31/23 Halfway Goal (LTG) Pt will score at 5/5 on all MMT w/appropriate core response in testing and at least 4/5 on LPM to show improved stability in order to improve pt ability to do typical active lifestyle activities(sports, hikes, play w/kids) LTG Duration 03/10/23 LEFS Impairment 56/80 Short Term Goal (STG) Pt will improve score to LEFS to at least 64/80 to show improved functional ability. STG Duration 01/31/23 Rn Family Practice Goal (LTG) Pt will improve score to LEFS to at least 76/80 to show improved functional ability. LTG Duration 03/11/23 Assessment Summary Assessment Pt educated to avoid exercises taht hurt his knee at this time and to ice if kene is sore. Pt had less painw / squats after manual and was able to eliminate pain w/use of tband around knees. Physical Therapy Plan Frequency and Duration Frequency of Treatment 1-2x/wk Duration of treatment (weeks) 12 Plan of Care Start Date 12/17/22 Plan of Care End Date 03/11/23 Next Visit Focus/Plan Next Note Type Treatment Note Next Visit Plan add gait at wall; ankle mobs, circumfrential mobiltiy, side steps, lat lunges for form, RDL progress to SL
--- NOTE | 2023-01-28 11:29 | PT.OTN ---
Current Diagnoses Pain in left knee (01/28/23) Physical Therapy Treatment Note PT-OP-A Visit Information Start: 12/16/22 16:58 Freq: Status: Active Protocol: Document 01/28/23 09:32 [facility] (Rec: 01/28/23 11:29 [facility] [id number]) Out-Patient Physical Therapy Visit Information Visit Information Visit Type Treatment Note Visit Start Time 10:33 Visit Stop Time 11:16 Total Visit Minutes 43 Visit Number 6/12 Number of DUST COLLECTOR ATTENDANT Visits 0 PT-OP-B Current Condition Start: 12/16/22 16:58 Freq: Status: Active Protocol: Document 12/17/22 09:58 [facility] (Rec: 12/17/22 10:56 [facility] [id number]) Current Condition History of Current Condition Onset Date about 1 year and worse past few months Current Complaints L knee pain History of Current Condition Pt reports his L knee never felt stable. It was really swollen and stiff a month ago and couldnt squat until it shifted and clicked and then it could move. He feels like he can move his tibia more out on L side. It has always felt loose. 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 He typically works out but hasn't been able to run for the past year. He has history of L MCL tear in 2002 but they didn't do surgery. He feels like his lower leg would push up through his kneecap when doing squats. Pt reports he did go on Naked and afriad about 1.5 year ago and lost a lot of weight. It has always gotten swollen but the past few months it has been a lot worse. Going up and down the stairs he has to be really careful. NO specific recent injury. 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 He did injure his R ankle a few years ago too. He feels like his knee hyperextend and has pain for a few weeks after . He overdid it working out last week and he irritated his LB. REently he has been still doing workout and squats and deadlift etc but with low wt and knee swells up and he just works out through the pain. He would have to give it a week to let the swelling go down. He does have some catching and locking w/bending and straightening then gets a pop. Feels unstable when wlaking ou in the mud especially with feed bags for animals. Treatment Goals Patient/Caregiver Goals be able play soccer, ultimate frisbee, go on hikes and backpacking trips like long. PT-OP-C Subjective Start: 12/16/22 16:58 Freq: Status: Active Protocol: Document 01/28/23 09:32 [facility] (Rec: 01/28/23 11:29 [facility] [id number]) OP-PT Subjective Patient Comments Patient Comments pt reports avoiding exercises that exasterbate knee pain. He has been still having swelling at the end of the day PT-OP-D Balance Start: 12/16/22 16:58 Freq: Status: Active Protocol: Document 12/17/22 09:58 [facility] (Rec: 12/17/22 10:56 [facility] [id number]) Balance Tests Single Limb Standing Single Limb- Right 30 sec EC Single Limb- Left 12 sec EC PT-OP-F Manual Assessment Start: 12/16/22 16:58 Freq: Status: Active Protocol: Document 12/17/22 09:58 [facility] (Rec: 12/17/22 10:56 [facility] [id number]) Manual Assessments Soft Tissue Assessment Soft Tissue Mobility Assessment pain along med jt line & MCL, tigthens off ITB and VL border Joint Mobility Assessment Joint Mobility Assessment ER of tibia & IR of femur that worsens w/knee bends L; B compensated supinated feet PT-OP-L Special Tests Start: 12/16/22 16:58 Freq: Status: Active Protocol: Document 12/17/22 09:58 [facility] (Rec: 12/17/22 10:56 [facility] [id number]) Special Tests Knee Special Tests Steve Test Test Results positive for discomfort Rut's Test Test Results neg Varus- 25 Degrees Test Results L slight laxity Valgus- 25 Degrees Test Results L sligth laxity Thessaly Test 5 Degrees Test Results positive Posterior Draw Test Results neg Heber's Test Results L slight laxity PT-OP-M Strength Start: 12/16/22 16:58 Freq: Status: Active Protocol: Document 12/17/22 09:58 [facility] (Rec: 12/17/22 10:56 [facility] [id number]) Hip Strength Hip Manual Muscle Testing Right Flexion (L2) 4 Good Extension (S1) 5 Normal Abduction 5 Normal Adduction 5 Normal External Rotation 5 Normal Internal Rotation 5 Normal Left Flexion (L2) 4- Good- Extension (S1) 4 Good Abduction 4 Good Adduction 4+ Good+ External Rotation 4 Good Internal Rotation 4 Good Comments dec core staiblity w/testing Knee Strength Knee Manual Muscle Testing Right Flexion (S2) 5 Normal Extension (L3) 5 Normal Left Flexion (S2) 5 Normal Extension (L3) 5 Normal Ankle/Foot Strength Ankle and Foot Manual Muscle Testing Right Dorsiflexion (L4) 5 Normal Plantarflexion (S1) 5 Normal Left Dorsiflexion (L4) 5 Normal Plantarflexion (S1) 5 Normal Comments 20 heel raises B PT-OP-Q Treatments Start: 12/16/22 16:58 Freq: Status: Active Protocol: Document 01/28/23 09:32 [facility] (Rec: 01/28/23 11:29 [facility] [id number]) Therapeutic Exercises Standing Exercises step ups Standing Exercise Name w/alt march Side bilateral Equipment Used bosu Reps/Minutes 5 SLS Standing Exercise Name SL squat in mirror Side left Reps/Minutes 10 Comments cues for hip lunge Standing Exercise Name fwd lunge & lat lunge Side bilateral Equipment Used bosu Reps/Minutes 6 ea squat Standing Exercise Name black side bosu Side bilateral Reps/Minutes 10 Manual Therapy Treatment Soft Tissue Mobilization quad Body Location VL & ITB rolling & circumfrential Mobilization Type Myofascial Release,Rolling, Strumming,Sustained Pressure Intensity/Depth Moderate Comments w/quad set and med patellar glide Joint Mobilizations PF Joint R Direction med glide Body Position Supine Taping Knee Body Location L Treatment Focus med tilt, glide and rot Type of Tape Samara PT-OP-T Assessment and Plan Start: 12/16/22 16:58 Freq: Status: Active Protocol: Document 01/28/23 09:32 [facility] (Rec: 01/28/23 11:29 [facility] [id number]) Physical Therapy Assessment Goals activities Short Term Goal (STG) Pt will be able to go for walks on flat terrain w/o feeling need to be careful or feeling of instability. STG Duration 01/31/23 [facility] Goal (LTG) Pt will be able to return to running and cutting activities w/o feeling of instability. LTG Duration 03/10/23 balance Hand Candle Molder Goal (LTG) Pt will be able to do SLS on LLE EC for 30 sec to show improved balancea nd stability . LTG Duration 03/10/23 strength Short Term Goal (STG) Pt will be indep w/HEP STG Duration 01/31/23 Hand Candle Molder Goal (LTG) Pt will score at 5/5 on all MMT w/appropriate core response in testing and at least 4/5 on LPM to show improved stability in order to improve pt ability to do typical active lifestyle activities(sports, hikes, play w/kids) LTG Duration 03/10/23 LEFS Impairment 56/80 Short Term Goal (STG) Pt will improve score to LEFS to at least 64/80 to show improved functional ability. STG Duration 01/31/23 Hand Candle Molder Goal (LTG) Pt will improve score to LEFS to at least 76/80 to show improved functional ability. LTG Duration 03/11/23 Assessment Summary Assessment Pt did well with exercises today w/cues and had improved VMO activation when on unstable surfaces (which is typical per research). He does have some lat quad gliding w/ squat and quad engagment which may be contributing to his knee pain. Attempted Rosenthal taping to help w/this. Physical Therapy Plan Frequency and Duration Frequency of Treatment 1-2x/wk Duration of treatment (weeks) 12 Plan of Care Start Date 12/17/22 Plan of Care End Date 03/11/23 Next Visit Focus/Plan Next Note Type Treatment Note Next Visit Plan review gait at wall; ankle mobs, circumfrential mobiltiy, side steps, lat lunges for form, RDL progress to SL
--- NOTE | 2023-02-11 11:14 | PT.OTN ---
Current Diagnoses Pain in left knee (02/11/23) Physical Therapy Treatment Note PT-OP-A Visit Information Start: 12/16/22 16:58 Freq: Status: Active Protocol: Document 02/11/23 09:58 [facility] (Rec: 02/11/23 10:03 [facility] [id number]) Out-Patient Physical Therapy Visit Information Visit Information Visit Type Progress Note Visit Start Time 09:47 Visit Stop Time 10:30 Total Visit Minutes 43 Visit Number 7/ Number of ASSURANCE ASSOCIATE Visits 0 PT-OP-B Current Condition Start: 12/16/22 16:58 Freq: Status: Active Protocol: Document 12/17/22 09:58 [facility] (Rec: 12/17/22 10:56 [facility] [id number]) Current Condition History of Current Condition Onset Date about 1 year and worse past few months Current Complaints L knee pain History of Current Condition Pt reports his L knee never felt stable. It was really swollen and stiff a month ago and couldnt squat until it shifted and clicked and then it could move. He feels like he can move his tibia more out on L side. It has always felt loose. 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 He typically works out but hasn't been able to run for the past year. He has history of L MCL tear in 2002 but they didn't do surgery. He feels like his lower leg would push up through his kneecap when doing squats. Pt reports he did go on Naked and afriad about 1.5 year ago and lost a lot of weight. It has always gotten swollen but the past few months it has been a lot worse. Going up and down the stairs he has to be really careful. NO specific recent injury. 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 He did injure his R ankle a few years ago too. He feels like his knee hyperextend and has pain for a few weeks after . He overdid it working out last week and he irritated his LB. REently he has been still doing workout and squats and deadlift etc but with low wt and knee swells up and he just works out through the pain. He would have to give it a week to let the swelling go down. He does have some catching and locking w/bending and straightening then gets a pop. Feels unstable when wlaking ou in the mud especially with feed bags for animals. Treatment Goals Patient/Caregiver Goals be able play soccer, ultimate frisbee, go on hikes and backpacking trips like long. PT-OP-C Subjective Start: 12/16/22 16:58 Freq: Status: Active Protocol: Document 02/11/23 09:58 [facility] (Rec: 02/11/23 10:03 [facility] [id number]) OP-PT Subjective Patient Comments Patient Comments Pt reports when he twists there is sharp pain still. He still feels unstable on uneven ground but does better on even ground. Has a lot more noise in his knee it still feels really unstable and shifts a lot. Notes he has been compliant w/exercises and workouts are less painful but he still has pain and a lot of swelling at the end of his day in his knee that requries icing. PT-OP-D Balance Start: 12/16/22 16:58 Freq: Status: Active Protocol: Document 02/11/23 09:58 [facility] (Rec: 02/11/23 10:03 [facility] [id number]) Balance Tests Single Limb Standing Single Limb- Right 30 sec EC Single Limb- Left 30 sec EC PT-OP-F Manual Assessment Start: 12/16/22 16:58 Freq: Status: Active Protocol: Document 12/17/22 09:58 [facility] (Rec: 12/17/22 10:56 [facility] [id number]) Manual Assessments Soft Tissue Assessment Soft Tissue Mobility Assessment pain along med jt line & MCL, tigthens off ITB and VL border Joint Mobility Assessment Joint Mobility Assessment ER of tibia & IR of femur that worsens w/knee bends L; B compensated supinated feet PT-OP-J Posture/Palpation/Skin Start: 12/16/22 16:58 Freq: Status: Active Protocol: Document 02/11/23 09:58 [facility] (Rec: 02/11/23 10:04 [facility] [id number]) Posture Evaluation Jeffrey Postural Classification System Lumbar Protective Mechanism Left AP 1 Lumbar Protective Mechanism Right AP 1 Lumbar Protective Mechanism Left PA 3 Lumbar Protective Mechanism Right PA 4 PT-OP-L Special Tests Start: 12/16/22 16:58 Freq: Status: Active Protocol: Document 12/17/22 09:58 [facility] (Rec: 12/17/22 10:56 [facility] [id number]) Special Tests Knee Special Tests Steve Test Test Results positive for discomfort Rut's Test Test Results neg Varus- 25 Degrees Test Results L slight laxity Valgus- 25 Degrees Test Results L sligth laxity Thessaly Test 5 Degrees Test Results positive Posterior Draw Test Results neg Heber's Test Results L slight laxity PT-OP-M Strength Start: 12/16/22 16:58 Freq: Status: Active Protocol: Document 02/11/23 09:58 [facility] (Rec: 02/11/23 10:03 [facility] [id number]) Hip Strength Hip Manual Muscle Testing Right Flexion (L2) 5 Normal Extension (S1) 5 Normal Abduction 5 Normal Adduction 5 Normal External Rotation 5 Normal Internal Rotation 5 Normal Left Flexion (L2) 5 Normal Extension (S1) 5 Normal Abduction 5 Normal Adduction 5 Normal External Rotation 5 Normal Internal Rotation 5 Normal Knee Strength Knee Manual Muscle Testing Right Flexion (S2) 5 Normal Extension (L3) 5 Normal Left Flexion (S2) 5 Normal Extension (L3) 5 Normal Ankle/Foot Strength Ankle and Foot Manual Muscle Testing Right Dorsiflexion (L4) 5 Normal Plantarflexion (S1) 5 Normal Left Dorsiflexion (L4) 5 Normal Plantarflexion (S1) 5 Normal Comments 20 heel raises B PT-OP-Q Treatments Start: 12/16/22 16:58 Freq: Status: Active Protocol: Document 02/11/23 09:58 [facility] (Rec: 02/11/23 11:14 [facility] [id number]) Manual Therapy Treatment Soft Tissue Mobilization quad Body Location VL & ITB Mobilization Type Myofascial Release,Rolling, Strumming,Sustained Pressure Intensity/Depth Moderate Body Position Prone Joint Mobilizations tibfib Joint L PA FM tibfem Joint L IR FM hip Joint L Direction on axis IR & abd w/manual facilitation at end range innominate Joint R caudal, L IR and abd FM sacrum Joint L caudal and UPA FM PT-OP-T Assessment and Plan Start: 12/16/22 16:58 Freq: Status: Active Protocol: Document 02/11/23 09:58 [facility] (Rec: 02/11/23 11:14 [facility] [id number]) Physical Therapy Assessment Goals activities Short Term Goal (STG) Pt will be able to go for walks on flat terrain w/o feeling need to be careful or feeling of instability. STG Duration achieved 02/11 Rail Loader Goal (LTG) Pt will be able to return to running and cutting activities w/o feeling of instability. 02/11-no change LTG Duration 03/10/23 balance Rail Loader Goal (LTG) Pt will be able to do SLS on LLE EC for 30 sec to show improved balancea nd stability . LTG Duration achieved 02/11 strength Short Term Goal (STG) Pt will be indep w/HEP STG Duration achieved-advancing as able Mcc Goal (LTG) Pt will score at 5/5 on all MMT w/appropriate core response in testing and at least 4/5 on LPM to show improved stability in order to improve pt ability to do typical active lifestyle activities(sports, hikes, play w/kids) 02/11-achieved w/MMT but limited LPM especially w/AP direction LTG Duration 03/10/23 LEFS Impairment 56/80 Short Term Goal (STG) Pt will improve score to LEFS to at least 64/80 to show improved functional ability. 02/11-n/t STG Duration 01/31/23 Mcc Goal (LTG) Pt will improve score to LEFS to at least 76/80 to show improved functional ability. LTG Duration 03/11/23 Assessment Summary Assessment Pt has made some progress towards his goals w/improved strength in LE and balance and is feeling more comfortable on flat surfaces and during workouts (but has taken some activities out of workouts to achieve this). He still feels lke his kene is unstable w/LLE in NWB and on uneven surfaces and w/playing w/kids or doing twists or turns.He has improved his tracking w/ activities ovearll but does still have some rotational limits in standing w/knee bending in squat. W/manual PT, pt had improved IR of hip which helps to improve pt ability to track more neturally and had less lat patellar glideing w/knee bending. Pt may bneefit from further testing and work w/ orthopedic as he is still showing instability and had some laxity w/ligamentous testing at [facility]. Physical Therapy Plan Frequency and Duration Frequency of Treatment 1-2x/wk Duration of treatment (weeks) 12 Plan of Care Start Date 12/17/22 Plan of Care End Date 03/11/23 Therapeutic Interventions Therapeutic Interventions Aquatic Therapy,Balance Training,Coordination Training ,Gait Training,Home Exercise Program,Joint Mobilizations, Soft Tissue Mobilization, Taping,Therapeutic Activities, Therapeutic Exercises Modalities Cold Pack/Ice Massage,Electric Stimulation,Hot Packs, Infrared Therapy,Iontophoresis ,Ultrasound Other Therapeutic Interventions ionto dexomethasone Next Visit Focus/Plan Next Note Type Treatment Note Next Visit Plan consider addition of LUE w/ next PT visit; cont to work on LLE alignment to dec pain
--- NOTE | 2023-02-25 18:29 | PT.OTN ---
Current Diagnoses Lesion of ulnar nerve, left upper limb (02/25/23) Pain in right shoulder (02/25/23) Pain in left knee (02/25/23) Other abnormalities of gait and mobility (02/25/23) Abnormal posture (02/25/23) Weakness (02/25/23) Physical Therapy Treatment Note PT-OP-A Visit Information Start: 12/16/22 16:58 Freq: Status: Active Protocol: Document 02/25/23 10:01 [facility] (Rec: 02/25/23 10:50 [facility] [id number]) Out-Patient Physical Therapy Visit Information Visit Information Visit Type Re-Evaluation Visit Start Time 10:02 Visit Stop Time 10:47 Total Visit Minutes 45 Visit Number 05/30 Number of SOLUTION MAKER Visits 0 PT-OP-B Current Condition Start: 12/16/22 16:58 Freq: Status: Active Protocol: Document 02/25/23 10:01 [facility] (Rec: 02/25/23 10:50 [facility] [id number]) Current Condition History of Current Condition Onset Date about 1 year and worse past few months; Current Complaints L knee pain & LUE pain History of Current Condition 02/25:Pt repots when arm is bent a long time, and her arm goes numb. He had EMG and it didn't quite meet qualification for official slowing per pt. Pt reprots this has gotten worse over the past 7-8 years. He notices it the most when playing on his phone or reading. He has to straighten his arm and recently it has been waking him at night w/the painful tignlign. It is over ulnar n distribution from elbow down. R shoulder and pec region on R bother him and he doesn't feel like he can get his R pec to engage much. He gets grinding and popping w/moving it around. When using forearm massaging, he feels a painful grind at collar bone. This has been going on for about 10 years. He thinks this started when he fell off a shelf in [place] d/t pulling something heavy and it pulled his arm down w/him and he had a LOC. That is the first time he remembers that hurting. IE:Pt reports his L knee never felt stable. It was really swollen and stiff a month ago and couldnt squat until it shifted and clicked and then it could move. He feels like he can move his tibia more out on L side. It has always felt loose. 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 He typically works out but hasn't been able to run for the past year. He has history of L MCL tear in 2002 but they didn't do surgery. He feels like his lower leg would push up through his kneecap when doing squats. Pt reports he did go on Naked and afriad about 1.5 year ago and lost a lot of weight. It has always gotten swollen but the past few months it has been a lot worse. Going up and down the stairs he has to be really careful. NO specific recent injury. 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 He did injure his R ankle a few years ago too. He feels like his knee hyperextend and has pain for a few weeks after . He overdid it working out last week and he irritated his LB. REently he has been still doing workout and squats and deadlift etc but with low wt and knee swells up and he just works out through the pain. He would have to give it a week to let the swelling go down. He does have some catching and locking w/bending and straightening then gets a pop. Feels unstable when wlaking ou in the mud especially with feed bags for animals. Treatment Goals Patient/Caregiver Goals Be able to throw w/RUE w/o pain, be able to massage w/o pain, able to work out w/o pain in chest; be able read w/ o pain and no wake up d/t pain on LUE PT-OP-C Subjective Start: 12/16/22 16:58 Freq: Status: Active Protocol: Document 02/25/23 10:01 [facility] (Rec: 02/25/23 18:12 [facility] [id number]) Patient Questionnaires Quick Dash- Upper Extremity Quick Dash UE Score 18.18 PT-OP-D Balance Start: 12/16/22 16:58 Freq: Status: Active Protocol: Document 02/11/23 09:58 [facility] (Rec: 02/11/23 10:03 [facility] [id number]) Balance Tests Single Limb Standing Single Limb- Right 30 sec EC Single Limb- Left 30 sec EC PT-OP-F Manual Assessment Start: 12/16/22 16:58 Freq: Status: Active Protocol: Document 02/25/23 10:01 [facility] (Rec: 02/25/23 10:50 [facility] [id number]) Manual Assessments Soft Tissue Assessment Soft Tissue Mobility Assessment tight R lat; notable dec pec defining on R PT-OP-J Posture/Palpation/Skin Start: 12/16/22 16:58 Freq: Status: Active Protocol: Document 02/25/23 10:01 [facility] (Rec: 02/25/23 10:50 [facility] [id number]) Posture Evaluation Jeffrey Postural Classification System Jeffrey Postural Classifications Posterior/Posterior Vertebral Compression Test 3 Elbow Flexion Test 1 Comments Posture Comments R scap sits more abd, IR, fwd tipped than L: humerus more ant in glenoid R PT-OP-L Special Tests Start: 12/16/22 16:58 Freq: Status: Active Protocol: Document 02/25/23 10:01 [facility] (Rec: 02/25/23 10:50 [facility] [id number]) Special Tests Cervical Spine Special Tests spurling Test Results neg Vertebral Artery Test Results neg Neural Special Tests- Upper Body Tinnels Test Results L pos Median Nerve Tension Test Results neg B Radial Nerve Tension Test Results neg B Ulnar Nerve Tension Test Results positive L PT-OP-M Strength Start: 12/16/22 16:58 Freq: Status: Active Protocol: Document 02/25/23 10:01 [facility] (Rec: 02/25/23 10:50 [facility] [id number]) Shoulder Strength Shoulder Manual Muscle Testing Right Flexion 4+ Good+ Extension 4 Good Abduction (C5) 4+ Good+ External Rotation 4 Good Internal Rotation 4 Good Horizontal Abduction 4 Good Horizontal Adduction 4 Good Left Flexion 5 Normal Extension 4+ Good+ Abduction (C5) 5 Normal External Rotation 4 Good Internal Rotation 5 Normal Horizontal Abduction 5 Normal Horizontal Adduction 4+ Good+ Elbow/Forearm Strength Elbow and Forearm Manual Muscle Testing Right Flexion (C6) 5 Normal Extension (C7) 5 Normal Pronation 5 Normal Supination 5 Normal Left Flexion (C6) 5 Normal Extension (C7) 5 Normal Pronation 4+ Good+ Supination 5 Normal Wrist Strength Wrist Manual Muscle Testing Right Flexion (C7) 5 Normal Extension (C6) 5 Normal Ulnar Deviation 5 Normal Radial Deviation 5 Normal Left Flexion (C7) 5 Normal Extension (C6) 4+ Good+ Ulnar Deviation 5 Normal Radial Deviation 5 Normal PT-OP-Q Treatments Start: 12/16/22 16:58 Freq: Status: Active Protocol: Document 02/25/23 10:01 [facility] (Rec: 02/25/23 10:50 [facility] [id number]) Therapeutic Exercises Sitting Exercises rotation Sitting Exercise Name cervical rot w/opp wt shift Side bilateral Manual Therapy Treatment Joint Mobilizations sternum Joint R ap fm w/cervical flex & rot AC Joint R clavicle ant fm SC Joint r inf & distractionfm ribs Comments R rib 1 PA FM; rib 2 and 3 caudal FM (R) thoracic Comments T1 UPA R: L UPA T2 and 3 FM; transverse gldie T3 B FM; T1 & 2 L FM transverse PT-OP-T Assessment and Plan Start: 12/16/22 16:58 Freq: Status: Active Protocol: Document 02/25/23 10:01 [facility] (Rec: 02/25/23 10:50 [facility] [id number]) Physical Therapy Assessment Other Concerns Barriers to Rehabilitation insurance limits Goals RUE Short Term Goal (STG) Pt will be able to do RUE AROM w/o inc pain or popping. STG Duration 03/28/23 Retort Pre Cooker Goal (LTG) Pt will be able throw, massagen and workout w/o R chest/UE pain. LTG Duration 04/27/23 LUE Retort Pre Cooker Goal (LTG) Pt will not wake w/LUE pain/ tingling/numbness and will be able to read and use phone w/ elbow bent as needed w/o pain LTG Duration 04/27/23 activities Short Term Goal (STG) Pt will be able to go for walks on flat terrain w/o feeling need to be careful or feeling of instability. STG Duration achieved 02/11 Retort Pre Cooker Goal (LTG) Pt will be able to return to running and cutting activities w/o feeling of instability. 02/11-no change LTG Duration 04/27 balance Retort Pre Cooker Goal (LTG) Pt will be able to do SLS on LLE EC for 30 sec to show improved balancea nd stability . LTG Duration achieved 02/11 strength Short Term Goal (STG) Pt will be indep w/HEP STG Duration achieved-advancing as able Mcfp Goal (LTG) Pt will score at 5/5 on all MMT w/appropriate core response in testing and at least 4/5 on LPM & EFT to show improved stability in order to improve pt ability to do typical active lifestyle activities(sports, hikes, play w/kids) 02/11-achieved w/MMT but limited LPM especially w/AP direction LTG Duration 04/27 LEFS Impairment 56/80 Short Term Goal (STG) Pt will improve score to LEFS to at least 64/80 to show improved functional ability. 02/11-n/t 02/25-n/t STG Duration 03/28 Mcfp Goal (LTG) Pt will improve score to LEFS to at least 76/80 to show improved functional ability. LTG Duration 04/27 Assessment Summary Assessment Pt has made good progrss w/L knee pain but is still very limited from his typical high level lifestyle w/pain w/any cutting or twisting. He has noted dec swelling since last session and has really focused on core and kene position w/ working out and that has helped. He was assessed today for referral for LUE pain and numbness w/having UE bent with findings of RUE pain also that inc w/his work along w/ working out w/notable difference (dec) in pec definition. He has B fwd rounded shoulders w/R>L and has signficiant restriction in upper tspine and ribs along w /cervically whcih likely is affecting both issues. He would benefit from skilled PT to work on neck, thoracic, and BUE mobiltiy in order to dec pt pain and imrpove function along w/cont to work on lumbar spine and LLE to improve LE mobility as neede.d He would benefit from MRI d/t continued instability and is awaiting approval for this. Physical Therapy Plan Frequency and Duration Frequency of Treatment 1x/Week Duration of treatment (weeks) 10 Plan of Care Start Date 02/25/23 Plan of Care End Date 05/06/23 Therapeutic Interventions Therapeutic Interventions Aquatic Therapy,Balance Training,Coordination Training ,Gait Training,Home Exercise Program,Joint Mobilizations, Soft Tissue Mobilization, Taping,Therapeutic Activities, Therapeutic Exercises Modalities Cold Pack/Ice Massage,Electric Stimulation,Hot Packs, Infrared Therapy,Iontophoresis ,Traction- Mechanical, Ultrasound Other Therapeutic Interventions ionto dexomethasone Next Visit Focus/Plan Next Note Type Treatment Note Next Visit Plan B rib work; B SC & AC work, further upper tspine work, STM to ulnar n pathway L; lat R STM
--- NOTE | 2023-02-25 18:29 | PT.OPPOC ---
Physical, Occupational & Speech Therapy At [facility] Current Diagnoses Lesion of ulnar nerve, left upper limb (02/25/23) Pain in right shoulder (02/25/23) Pain in left knee (02/25/23) Other abnormalities of gait and mobility (02/25/23) Abnormal posture (02/25/23) Weakness (02/25/23) Visit Care Team Role Provider Type Yuli Calvillo DO Attending Provider Physician Family Provider Primary Care Provider Referring Provider Specialty: Family Practice Address: [address] [place] [address], [facility] [place], [address] Email: [email or web address] Plan Of Care PT-OP-T Assessment and Plan Start: 12/16/22 16:58 Freq: Status: Active Protocol: Document 02/25/23 10:01 [facility] (Rec: 02/25/23 10:50 [facility] [id number]) Physical Therapy Assessment Other Concerns Barriers to Rehabilitation insurance limits Goals RUE Short Term Goal (STG) Pt will be able to do RUE AROM w/o inc pain or popping. STG Duration 03/28/23 Prison Goal (LTG) Pt will be able throw, massagen and workout w/o R chest/UE pain. LTG Duration 04/27/23 LUE Dry Kiln Worker Goal (LTG) Pt will not wake w/LUE pain/ tingling/numbness and will be able to read and use phone w/ elbow bent as needed w/o pain LTG Duration 04/27/23 activities Short Term Goal (STG) Pt will be able to go for walks on flat terrain w/o feeling need to be careful or feeling of instability. STG Duration achieved 02/11 Prison Goal (LTG) Pt will be able to return to running and cutting activities w/o feeling of instability. 02/11-no change LTG Duration 04/27 balance Prison Goal (LTG) Pt will be able to do SLS on LLE EC for 30 sec to show improved balancea nd stability . LTG Duration achieved 02/11 strength Short Term Goal (STG) Pt will be indep w/HEP STG Duration achieved-advancing as able Prison Goal (LTG) Pt will score at 5/5 on all MMT w/appropriate core response in testing and at least 4/5 on LPM & EFT to show improved stability in order to improve pt ability to do typical active lifestyle activities(sports, hikes, play w/kids) 02/11-achieved w/MMT but limited LPM especially w/AP direction LTG Duration 04/27 LEFS Impairment 56/80 Short Term Goal (STG) Pt will improve score to LEFS to at least 64/80 to show improved functional ability. 02/11-n/t 02/25-n/t STG Duration 03/28 Dry Kiln Worker Goal (LTG) Pt will improve score to LEFS to at least 76/80 to show improved functional ability. LTG Duration 04/27 Assessment Summary Assessment Pt has made good progrss w/L knee pain but is still very limited from his typical high level lifestyle w/pain w/any cutting or twisting. He has noted dec swelling since last session and has really focused on core and kene position w/ working out and that has helped. He was assessed today for referral for LUE pain and numbness w/having UE bent with findings of RUE pain also that inc w/his work along w/ working out w/notable difference (dec) in pec definition. He has B fwd rounded shoulders w/R>L and has signficiant restriction in upper tspine and ribs along w /cervically whcih likely is affecting both issues. He would benefit from skilled PT to work on neck, thoracic, and BUE mobiltiy in order to dec pt pain and imrpove function along w/cont to work on lumbar spine and LLE to improve LE mobility as neede.d He would benefit from MRI d/t continued instability and is awaiting approval for this. Physical Therapy Plan Frequency and Duration Frequency of Treatment 1x/Week Duration of treatment (weeks) 10 Plan of Care Start Date 02/25/23 Plan of Care End Date 05/06/23 Therapeutic Interventions Therapeutic Interventions Aquatic Therapy,Balance Training,Coordination Training ,Gait Training,Home Exercise Program,Joint Mobilizations, Soft Tissue Mobilization, Taping,Therapeutic Activities, Therapeutic Exercises Modalities Cold Pack/Ice Massage,Electric Stimulation,Hot Packs, Infrared Therapy,Iontophoresis ,Traction- Mechanical, Ultrasound Other Therapeutic Interventions ionto dexomethasone Next Visit Focus/Plan Next Note Type Treatment Note Next Visit Plan B rib work; B SC & AC work, further upper tspine work, STM to ulnar n pathway L; lat R STM Plan of Care Dates Plan of Care Start Date 02/25/23 Plan of Care End Date 05/06/23 Electronically Signed by: Trisha Luther, PT 02/25/23 5625 If you are in agreement with this Plan of Care, please return a signed and dated copy. I have reviewed this Plan of Care and certify that the skilled therapy services above are required to meet the patient?s needs. Physician Signature Date Printed Name and Credentials Clinical Instructor Signature Printed Name and Credentials
--- NOTE | 2023-03-11 19:15 | PT.OTN ---
Current Diagnoses Lesion of ulnar nerve, left upper limb (03/11/23) Pain in right shoulder (03/11/23) Pain in left knee (03/11/23) Other abnormalities of gait and mobility (03/11/23) Abnormal posture (03/11/23) Weakness (03/11/23) Physical Therapy Treatment Note PT-OP-A Visit Information Start: 12/16/22 16:58 Freq: Status: Active Protocol: Document 03/11/23 19:09 [facility] (Rec: 03/11/23 19:15 [facility] [id number]) Out-Patient Physical Therapy Visit Information Visit Information Visit Type Treatment Note Visit Start Time 11:00 Visit Stop Time 11:45 Total Visit Minutes 45 Visit Number 9/12 Number of HEMSTITCHER Visits 0 PT-OP-B Current Condition Start: 12/16/22 16:58 Freq: Status: Active Protocol: Document 02/25/23 10:01 [facility] (Rec: 02/25/23 10:50 [facility] [id number]) Current Condition History of Current Condition Onset Date about 1 year and worse past few months; Current Complaints L knee pain & LUE pain History of Current Condition 02/25:Pt repots when arm is bent a long time, and her arm goes numb. He had EMG and it didn't quite meet qualification for official slowing per pt. Pt reprots this has gotten worse over the past 7-8 years. He notices it the most when playing on his phone or reading. He has to straighten his arm and recently it has been waking him at night w/the painful tignlign. It is over ulnar n distribution from elbow down. R shoulder and pec region on R bother him and he doesn't feel like he can get his R pec to engage much. He gets grinding and popping w/moving it around. When using forearm massaging, he feels a painful grind at collar bone. This has been going on for about 10 years. He thinks this started when he fell off a shelf in [place] d/t pulling something heavy and it pulled his arm down w/him and he had a LOC. That is the first time he remembers that hurting. IE:Pt reports his L knee never felt stable. It was really swollen and stiff a month ago and couldnt squat until it shifted and clicked and then it could move. He feels like he can move his tibia more out on L side. It has always felt loose. 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 He typically works out but hasn't been able to run for the past year. He has history of L MCL tear in 2002 but they didn't do surgery. He feels like his lower leg would push up through his kneecap when doing squats. Pt reports he did go on Naked and afriad about 1.5 year ago and lost a lot of weight. It has always gotten swollen but the past few months it has been a lot worse. Going up and down the stairs he has to be really careful. NO specific recent injury. he used to play package pick up soccer but hasn't done that . He did injure his R ankle a few years ago too. He feels like his knee hyperextend and has pain for a few weeks after . He overdid it working out last week and he irritated his LB. REently he has been still doing workout and squats and deadlift etc but with low wt and knee swells up and he just works out through the pain. He would have to give it a week to let the swelling go down. He does have some catching and locking w/bending and straightening then gets a pop. Feels unstable when wlaking ou in the mud especially with feed bags for animals. Treatment Goals Patient/Caregiver Goals Be able to throw w/RUE w/o pain, be able to massage w/o pain, able to work out w/o pain in chest; be able read w/ o pain and no wake up d/t pain on LUE PT-OP-C Subjective Start: 12/16/22 16:58 Freq: Status: Active Protocol: Document 03/11/23 19:09 [facility] (Rec: 03/11/23 19:15 [facility] [id number]) OP-PT Subjective Patient Comments Patient Comments Pt reports he feels like the upper tspine moblity was very helpful PT-OP-D Balance Start: 12/16/22 16:58 Freq: Status: Active Protocol: Document 02/11/23 09:58 [facility] (Rec: 02/11/23 10:03 [facility] [id number]) Balance Tests Single Limb Standing Single Limb- Right 30 sec EC Single Limb- Left 30 sec EC PT-OP-F Manual Assessment Start: 12/16/22 16:58 Freq: Status: Active Protocol: Document 02/25/23 10:01 [facility] (Rec: 02/25/23 10:50 [facility] [id number]) Manual Assessments Soft Tissue Assessment Soft Tissue Mobility Assessment tight R lat; notable dec pec defining on R PT-OP-J Posture/Palpation/Skin Start: 12/16/22 16:58 Freq: Status: Active Protocol: Document 02/25/23 10:01 [facility] (Rec: 02/25/23 10:50 [facility] [id number]) Posture Evaluation [facility] Postural Classification System Jeffrey Postural Classifications Posterior/Posterior Vertebral Compression Test 3 Elbow Flexion Test 1 Comments Posture Comments R scap sits more abd, IR, fwd tipped than L: humerus more ant in glenoid R PT-OP-L Special Tests Start: 12/16/22 16:58 Freq: Status: Active Protocol: Document 02/25/23 10:01 [facility] (Rec: 02/25/23 10:50 [facility] [id number]) Special Tests Cervical Spine Special Tests spurling Test Results neg Vertebral Artery Test Results neg Neural Special Tests- Upper Body Tinnels Test Results L pos Median Nerve Tension Test Results neg B Radial Nerve Tension Test Results neg B Ulnar Nerve Tension Test Results positive L PT-OP-M Strength Start: 12/16/22 16:58 Freq: Status: Active Protocol: Document 02/25/23 10:01 [facility] (Rec: 02/25/23 10:50 [facility] [id number]) Shoulder Strength Shoulder Manual Muscle Testing Right Flexion 4+ Good+ Extension 4 Good Abduction (C5) 4+ Good+ External Rotation 4 Good Internal Rotation 4 Good Horizontal Abduction 4 Good Horizontal Adduction 4 Good Left Flexion 5 Normal Extension 4+ Good+ Abduction (C5) 5 Normal External Rotation 4 Good Internal Rotation 5 Normal Horizontal Abduction 5 Normal Horizontal Adduction 4+ Good+ Elbow/Forearm Strength Elbow and Forearm Manual Muscle Testing Right Flexion (C6) 5 Normal Extension (C7) 5 Normal Pronation 5 Normal Supination 5 Normal Left Flexion (C6) 5 Normal Extension (C7) 5 Normal Pronation 4+ Good+ Supination 5 Normal Wrist Strength Wrist Manual Muscle Testing Right Flexion (C7) 5 Normal Extension (C6) 5 Normal Ulnar Deviation 5 Normal Radial Deviation 5 Normal Left Flexion (C7) 5 Normal Extension (C6) 4+ Good+ Ulnar Deviation 5 Normal Radial Deviation 5 Normal PT-OP-Q Treatments Start: 12/16/22 16:58 Freq: Status: Active Protocol: Document 03/11/23 19:09 [facility] (Rec: 03/11/23 19:15 [facility] [id number]) Therapeutic Exercises Supine Exercises axial elongation Supine Exercise Name self resisted Reps/Minutes 5 sec x4 Manual Therapy Treatment Soft Tissue Mobilization scar Body Location R along ribcage Comments superficial fascia forearm Comments MFR superficial tissue L forearm w/wrist flex/ext ulnar n pathway Mobilization Type Rolling,Strumming,Sustained Pressure Comments w/AAROM ulnar n glide Joint Mobilizations humeroulnar Joint Ulna on axis FM radioulnar Joint AP FM AC Joint R ant calvicle, L post scap ribs Comments rib1, 2 and 3 caudal FM (R) PT-OP-T Assessment and Plan Start: 12/16/22 16:58 Freq: Status: Active Protocol: Document 03/11/23 19:09 [facility] (Rec: 03/11/23 19:15 [facility] [id number]) Physical Therapy Assessment Goals RUE Short Term Goal (STG) Pt will be able to do RUE AROM w/o inc pain or popping. STG Duration 03/28/23 Student Advisor Goal (LTG) Pt will be able throw, massagen and workout w/o R chest/UE pain. LTG Duration 04/27/23 LUE Student Advisor Goal (LTG) Pt will not wake w/LUE pain/ tingling/numbness and will be able to read and use phone w/ elbow bent as needed w/o pain LTG Duration 04/27/23 activities Short Term Goal (STG) Pt will be able to go for walks on flat terrain w/o feeling need to be careful or feeling of instability. STG Duration achieved 02/11 Student Advisor Goal (LTG) Pt will be able to return to running and cutting activities w/o feeling of instability. 02/11-no change LTG Duration 04/27 balance Student Advisor Goal (LTG) Pt will be able to do SLS on LLE EC for 30 sec to show improved balancea nd stability . LTG Duration achieved 02/11 strength Short Term Goal (STG) Pt will be indep w/HEP STG Duration achieved-advancing as able Half-Way Goal (LTG) Pt will score at 5/5 on all MMT w/appropriate core response in testing and at least 4/5 on LPM & EFT to show improved stability in order to improve pt ability to do typical active lifestyle activities(sports, hikes, play w/kids) 02/11-achieved w/MMT but limited LPM especially w/AP direction LTG Duration 04/27 LEFS Impairment 56/80 Short Term Goal (STG) Pt will improve score to LEFS to at least 64/80 to show improved functional ability. 02/11-n/t 02/25-n/t STG Duration 03/28 Student Advisor Goal (LTG) Pt will improve score to LEFS to at least 76/80 to show improved functional ability. LTG Duration 04/27 Assessment Summary Assessment Pt did well with axial elongation exercise and was given for HEP. Pt had signficant tension along ulnar n pathway. He does have elevation of R upper ribs and did have tension at pneumothorax scar that affected flex. Improved scar mobiltiy w/manual Physical Therapy Plan Frequency and Duration Frequency of Treatment 1x/Week Duration of treatment (weeks) 10 Plan of Care Start Date 02/25/23 Plan of Care End Date 05/06/23 Next Visit Focus/Plan Next Note Type Treatment Note Next Visit Plan B rib work; B SC & AC work, further upper tspine work, STM to ulnar n pathway L; lat R STM
--- NOTE | 2023-05-18 13:14 | PT.OPDS ---
Current Diagnoses Lesion of ulnar nerve, left upper limb (03/11/23) Pain in right shoulder (03/11/23) Pain in left knee (03/11/23) Other abnormalities of gait and mobility (03/11/23) Abnormal posture (03/11/23) Weakness (03/11/23) Visit Care Team Role Provider Type Yuli Calvillo DO Attending Provider Physician Family Provider Primary Care Provider Referring Provider Specialty: [facility] Address: [address] [place] [address], [facility] [place], [address] Email: [email or web address] Visit Number Visit Number 06/30 Discharge Summary PT-OP-B Current Condition Start: 12/16/22 16:58 Freq: Status: Active Protocol: Document 02/25/23 10:01 [facility] (Rec: 02/25/23 10:50 [facility] [id number]) Current Condition History of Current Condition Onset Date about 1 year and worse past few months; Current Complaints L knee pain & LUE pain History of Current Condition 02/25:Pt repots when arm is bent a long time, and her arm goes numb. He had EMG and it didn't quite meet qualification for official slowing per pt. Pt reprots this has gotten worse over the past 7-8 years. He notices it the most when playing on his phone or reading. He has to straighten his arm and recently it has been waking him at night w/the painful tignlign. It is over ulnar n distribution from elbow down. R shoulder and pec region on R bother him and he doesn't feel like he can get his R pec to engage much. He gets grinding and popping w/moving it around. When using forearm massaging, he feels a painful grind at collar bone. This has been going on for about 10 years. He thinks this started when he fell off a shelf in [place] d/t pulling something heavy and it pulled his arm down w/him and he had a LOC. That is the first time he remembers that hurting. IE:Pt reports his L knee never felt stable. It was really swollen and stiff a month ago and couldnt squat until it shifted and clicked and then it could move. He feels like he can move his tibia more out on L side. It has always felt loose. 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 He typically works out but hasn't been able to run for the past year. He has history of L MCL tear in 2002 but they didn't do surgery. He feels like his lower leg would push up through his kneecap when doing squats. Pt reports he did go on Naked and afriad about 1.5 year ago and lost a lot of weight. It has always gotten swollen but the past few months it has been a lot worse. Going up and down the stairs he has to be really careful. NO specific recent injury. he used to play hop picker soccer but hasn't done that . He did injure his R ankle a few years ago too. He feels like his knee hyperextend and has pain for a few weeks after . He overdid it working out last week and he irritated his LB. REently he has been still doing workout and squats and deadlift etc but with low wt and knee swells up and he just works out through the pain. He would have to give it a week to let the swelling go down. He does have some catching and locking w/bending and straightening then gets a pop. Feels unstable when wlaking ou in the mud especially with feed bags for animals. Treatment Goals Patient/Caregiver Goals Be able to throw w/RUE w/o pain, be able to massage w/o pain, able to work out w/o pain in chest; be able read w/ o pain and no wake up d/t pain on LUE PT-OP-C Subjective Start: 12/16/22 16:58 Freq: Status: Active Protocol: Document 03/11/23 19:09 [facility] (Rec: 03/11/23 19:15 [facility] [id number]) OP-PT Subjective Patient Comments Patient Comments Pt reports he feels like the upper tspine moblity was very helpful PT-OP-D Balance Start: 12/16/22 16:58 Freq: Status: Active Protocol: Document 02/11/23 09:58 [facility] (Rec: 02/11/23 10:03 [facility] [id number]) Balance Tests Single Limb Standing Single Limb- Right 30 sec EC Single Limb- Left 30 sec EC PT-OP-F Manual Assessment Start: 12/16/22 16:58 Freq: Status: Active Protocol: Document 02/25/23 10:01 [facility] (Rec: 02/25/23 10:50 [facility] [id number]) Manual Assessments Soft Tissue Assessment Soft Tissue Mobility Assessment tight R lat; notable dec pec defining on R PT-OP-J Posture/Palpation/Skin Start: 12/16/22 16:58 Freq: Status: Active Protocol: Document 02/25/23 10:01 [facility] (Rec: 02/25/23 10:50 [facility] [id number]) Posture Evaluation Jeffrey Postural Classification System Jeffrey Postural Classifications Posterior/Posterior Vertebral Compression Test 3 Elbow Flexion Test 1 Comments Posture Comments R scap sits more abd, IR, fwd tipped than L: humerus more ant in glenoid R PT-OP-L Special Tests Start: 12/16/22 16:58 Freq: Status: Active Protocol: Document 02/25/23 10:01 [facility] (Rec: 02/25/23 10:50 [facility] [id number]) Special Tests Cervical Spine Special Tests spurling Test Results neg Vertebral Artery Test Results neg Neural Special Tests- Upper Body Tinnels Test Results L pos Median Nerve Tension Test Results neg B Radial Nerve Tension Test Results neg B Ulnar Nerve Tension Test Results positive L PT-OP-M Strength Start: 12/16/22 16:58 Freq: Status: Active Protocol: Document 02/25/23 10:01 [facility] (Rec: 02/25/23 10:50 [facility] [id number]) Shoulder Strength Shoulder Manual Muscle Testing Right Flexion 4+ Good+ Extension 4 Good Abduction (C5) 4+ Good+ External Rotation 4 Good Internal Rotation 4 Good Horizontal Abduction 4 Good Horizontal Adduction 4 Good Left Flexion 5 Normal Extension 4+ Good+ Abduction (C5) 5 Normal External Rotation 4 Good Internal Rotation 5 Normal Horizontal Abduction 5 Normal Horizontal Adduction 4+ Good+ Elbow/Forearm Strength Elbow and Forearm Manual Muscle Testing Right Flexion (C6) 5 Normal Extension (C7) 5 Normal Pronation 5 Normal Supination 5 Normal Left Flexion (C6) 5 Normal Extension (C7) 5 Normal Pronation 4+ Good+ Supination 5 Normal Wrist Strength Wrist Manual Muscle Testing Right Flexion (C7) 5 Normal Extension (C6) 5 Normal Ulnar Deviation 5 Normal Radial Deviation 5 Normal Left Flexion (C7) 5 Normal Extension (C6) 4+ Good+ Ulnar Deviation 5 Normal Radial Deviation 5 Normal PT-OP-T Assessment and Plan Start: 12/16/22 16:58 Freq: Status: Active Protocol: Document 05/18/23 13:12 [facility] (Rec: 05/18/23 13:14 [facility] [id number]) Physical Therapy Assessment Goals RUE Short Term Goal (STG) Pt will be able to do RUE AROM w/o inc pain or popping. STG Duration 03/28/23 Maintenance Painter Goal (LTG) Pt will be able throw, massagen and workout w/o R chest/UE pain. LTG Duration 04/27/23 LUE Maintenance Painter Goal (LTG) Pt will not wake w/LUE pain/ tingling/numbness and will be able to read and use phone w/ elbow bent as needed w/o pain LTG Duration 04/27/23 activities Short Term Goal (STG) Pt will be able to go for walks on flat terrain w/o feeling need to be careful or feeling of instability. STG Duration achieved 02/11 Maintenance Painter Goal (LTG) Pt will be able to return to running and cutting activities w/o feeling of instability. 02/11-no change LTG Duration 04/27 balance [facility] Goal (LTG) Pt will be able to do SLS on LLE EC for 30 sec to show improved balancea nd stability . LTG Duration achieved 02/11 strength Short Term Goal (STG) Pt will be indep w/HEP STG Duration achieved-advancing as able [facility] Goal (LTG) Pt will score at 5/5 on all MMT w/appropriate core response in testing and at least 4/5 on LPM & EFT to show improved stability in order to improve pt ability to do typical active lifestyle activities(sports, hikes, play w/kids) 02/11-achieved w/MMT but limited LPM especially w/AP direction LTG Duration 04/27 LEFS Impairment 56/80 Short Term Goal (STG) Pt will improve score to LEFS to at least 64/80 to show improved functional ability. 02/11-n/t 02/25-n/t STG Duration 03/28 Maintenance Painter Goal (LTG) Pt will improve score to LEFS to at least 76/80 to show improved functional ability. LTG Duration 04/27 Assessment Summary Assessment LVM on 04/01/23 at 0920 to inquire if patient would like to schedule more visits or be done with PT. Patient called back and said that he has an injury and not going to schedule at this time. Pt made good progress w/L knee pain but still felt instabilty w/ turning and unstable surfaces but had dec pain and swelling. He had limited progress w/UE symptoms d/t only seen for 2 visits. Physical Therapy Plan Discharge Physical Therapy Discharge Reasons No Longer Attending PT
== END 2023-05-20 09:31 | disposition home or self-care (01) ==
LOC: PHYS 11:00
PROVIDERS: Absent Provider Family Medicine; Family Provider Family Medicine; PCP Family Medicine; Referring Provider Family Medicine; Visit Provider Family Medicine
DX: M25.562 Pain in left knee (principal); G56.22 Lesion of ulnar nerve, left upper limb; R26.89 Other abnormalities of gait and mobility; R29.3 Abnormal posture; R53.1 Weakness; M25.511 Pain in right shoulder
CPT/HCPCS: 95886; 95909; 97110; 97140; 97162; 97535; 97750

== ENCOUNTER → 2023-03-12 18:43 | Outpatient (CLI) | payer OTHER, MEDICAID, SELFPAY ==
--- NOTE | 2023-03-12 18:44 | DI.MRI.S_ITS ---
PROCEDURE: MR KNEE LT WO CON INDICATIONS: Knee pain TECHNIQUE: Noncontrast sagittal PD fast spin echo and T2 fast spin echo with fat saturation, sagittal 3-D FLASH with fat saturation; coronal T1 spin echo and PD fast spin echo with fat saturation, and axial PD fast spin echo with fat saturation through the knee. COMPARISON: None. FINDINGS: Image quality: Excellent. Menisci: Subtle oblique tear involving posterior horn of medial meniscus is seen extending to superior articulating surface. The lateral meniscus is intact. The meniscal root ligaments appear intact. Cruciate ligaments: The anterior and posterior cruciate ligaments appear intact. Medial structures: The medial collateral ligament appears thickened with adjacent soft tissue edema intrasubstance T2 hyperintense signal near its femoral insertion.. The posterior oblique ligament, semimembranosus tendon insertions, oblique popliteal ligament, and meniscocapsular junction appear intact. Visualized portions of the pes anserinus tendons appear normal. No abnormal bursal fluid. Lateral structures: The lateral collateral ligament, long and short heads of the biceps femoris tendon appear intact. The popliteus tendon appears normal; the popliteofibular ligament appears intact. Iliotibial band appears normal. Anterior structures: The quadriceps and patellar tendons appear intact. Patellar alignment is normal. No femoral trochlear dysplasia or ventral trochlear prominence. No edema in the infrapatellar fat pad. Bones and cartilage: No bone marrow contusions or fractures. 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 Joint space: There is small joint effusion. No Ramirez's cyst. Normal appearing synovial plicae are incidentally noted. IMPRESSION: 1. Subtle oblique tear involving posterior horn of medial meniscus extending to superior articulating surface. No focal lateral meniscal tear. 2. Low-grade MCL sprain/partial-thickness tear. The cruciate ligaments are intact. 3. 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 No fracture or dislocation. Small joint effusion, no gross loose bodies. Dictated by: Hussein Davila M.D. on 03/13/2023 at 9:35 Approved by: Hussein Davila M.D. on 03/13/2023 at 9:37
== END ==
PROVIDERS: Family Provider Family Medicine; PCP Family Medicine; Referring Provider Family Medicine; Visit Provider Family Medicine
DX: M25.562 Pain in left knee (principal); S83.242A Other tear of medial meniscus, current injury, left knee, initial encounter; S83.412A Sprain of medial collateral ligament of left knee, initial encounter; M94.262 Chondromalacia, left knee
CPT/HCPCS: 73721

== ENCOUNTER → 2025-08-30 07:59 | Outpatient (CLI) | payer OTHER, SELFPAY ==
[2025-08-30 08:34] LABS: Add Manual Diff / Slide Review NO; Hematocrit 48.5 % (41-53); Hemoglobin 16.7 g/dL (13.5-17.5); Lymphocytes Absolute Auto 1700 /uL (1100-4500); Mean Corpuscular HGB Conc 34.5 % (30-36); Mean Corpuscular Hemoglobin 30.8 PG (26-34); Mean Corpuscular Volume 89.4 fL (80-100); Platelet Count 189 X10^3/uL (150-400)
[2025-08-30 08:42] LABS: Hemoglobin A1C% w Est Avg Glu 5.4 % (4.0-6.0)
[2025-08-30 09:04] LABS: Cholesterol 240 mg/dL (140-199); HDL Cholesterol 50 mg/dL (40-60); Triglycerides 149 mg/dL (35-150)
[2025-08-30 09:09] LABS: NT-proBNP (BNP-Adult 18+) 23 pg/mL (<125)
[2025-08-30 09:30] LABS: TSH w/ Reflex to FT4 0.63 uIU/mL (0.47-4.68)
== END ==
PROVIDERS: PCP Family Medicine; Referring Provider Family Medicine; Visit Provider Family Medicine
DX: Z13.1 Encounter for screening for diabetes mellitus (principal); Z13.220 Encounter for screening for lipoid disorders; R06.00 Dyspnea, unspecified; R53.83 Other fatigue; Z83.438 Family history of other disorder of lipoprotein metabolism and other lipidemia
CPT/HCPCS: 36415; 80061; 83036; 83880; 84443; 85025